=== PATIENT | female | born 1965 | race Caucasian/White ===

== ENCOUNTER 2018-02-25 07:29 | Emergency (ER) | payer OTHER ==
[2018-02-25 07:35] VITALS: BP 134/83; PULSE 55; RESP 18; TEMP 97.2
--- NOTE | 2018-02-25 08:06 | ED ---
General Adult HPI - General Chief complaint: Extremity Injury, Upper Stated complaint: rt shouler pain Time Seen by Provider: 02/25/18 07:46 Source: patient, RN notes reviewed Mode of arrival: ambulatory Limitations: no limitations - History of Present Illness Initial comments: Patient 52-year-old female presents emergency room today with chief complaint of right shoulder pain over the last 2 days. 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 She states that she noticed increased pain to the right shoulder. She states is worse with any movements of extension and abduction. Patient denies any specific injury or trauma to the area. She states she was using her [place] which is run out of for the pain. She states she is not taking any anti-inflammatories. She denies any other complaints or symptoms. Patient denies any recent fever, chills, shortness of breath, chest pain, back pain, abdominal pain, nausea or vomiting, numbness or tingling, dysuria or hematuria, constipation or diarrhea, headaches or visual changes, or any other complaints. - Related Data Home Medications Medication Instructions Recorded Confirmed Atenolol [Tenormin] 50 mg PO DAILY 09/27/15 10/10/16 Albuterol Inhaler [Ventolin Hfa 1 - 2 puff INHALATION Q6HR PRN 09/11/16 10/10/16 Inhaler] HYDROcodone/APAP 10-325MG [[place] 1 tab PO BID PRN 09/11/16 10/10/16 10-325] Meclizine [Antivert] 12.5 mg PO DIRECTED PRN 09/11/16 10/10/16 Previous Rx's Medication Instructions Recorded Cyclobenzaprine [Flexeril] 10 mg PO TID #20 tab 02/25/18 Dexamethasone 0.75 mg PO DIRECTED #12 tablet 02/25/18 Ibuprofen [Motrin] 600 mg PO Q6HR PRN #40 day 02/25/18 Allergies Allergy/AdvReac Type Severity Reaction Status Date / Time iron Allergy Unknown Unknown Verified 02/25/18 07:35 Childhood erythromycin base Allergy BREATHING Verified 02/25/18 07:35 DIFFICULTY. Penicillins Allergy Unknown Verified 02/25/18 07:35 Childhood pneumococcal vaccine Allergy Unknown Verified 02/25/18 07:35 [From Prevnar 13 (PF)] Review of Systems ROS Statement: Those systems with pertinent positive or pertinent negative responses have been documented in the HPI. ROS Other: All systems not noted in ROS Statement are negative. Past Medical History Past Medical History: COPD, Eye Disorder, GERD/Reflux, Hypertension, Myocardial Infarction ([place]) Additional Past Medical History / Comment(s): STATES [place] X2 ( @ 28 AND 32 YEARS OLD), vertigo, irregular heartbeat, 5 collapsed lungs- LEFT LUNG REMOVED, HERNIATED DISC WITH BACK PAIN, STATES SHE PICKS AT HER SKIN., BILAT CATARACTS Last Myocardial Infarction Date:: 1996 History of Any Multi-Drug Resistant Organisms: None Reported Additional Past Surgical History / Comment(s): PARTIAL left lung removed, colonoscopy Past Anesthesia/Blood Transfusion Reactions: Motion Sickness Past Psychological History: Depression Smoking Status: Heavy tobacco smoker Past Alcohol Use History: Daily Past Drug Use History: None Reported - Past Family History Mother Family Medical History: Cancer General Exam - General Exam Comments Initial Comments: General: The patient is awake and alert, in no distress, and does not appear acutely ill. Neck: The neck is supple, there is no tenderness or JVD. Cardiovascular: There is a regular rate and rhythm. No murmur, rub or gallop is appreciated. Respiratory: Lungs are clear to auscultation, respirations are non-labored, breath sounds are equal. No wheezes, stridor, rales, or rhonchi. Musculoskeletal: Normal appearance of the right shoulder. Sensations are intact. Pulses equal bilaterally 2+. Strength is 5/5. Pain reproduced with abduction and extension. No specific bony tenderness on exam. Tender in the musculature of trapezius. Neurological: A&O x 3. CN II-XII intact, There are no obvious motor or sensory deficits. Coordination appears grossly intact. Speech is normal. Skin: Skin is warm and dry and no rashes or lesions are noted. Psychiatric: Normal mood and affect. Limitations: no limitations Course Vital Signs 02/25/18 07:32 Temperature 97.2 F L Pulse Rate 55 L Respiratory 18 Rate Blood Pressure 134/83 O2 Sat by Pulse 100 Oximetry Medical Decision Making - Medical Decision Making Patient's pain reproducible with certain movements. 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 Has not used any anti-inflammatories. Will be started on anti-inflammatories, steroid Dosepak, muscle relaxant for her symptoms. Advised follow-up with family physician or return to the emergency room symptoms increase or worsen. Disposition Clinical Impression: Overuse injury Disposition: HOME SELF-CARE Condition: Good Instructions: Tendinitis (ED) Additional Instructions: Please use medication as discussed. Please follow-up with family doctor in the next 2 days of symptoms have not improved. Please return to emergency room if the symptoms increase or worsen or for any other concerns. Prescriptions: Cyclobenzaprine [Flexeril] 10 mg PO TID #20 tab Dexamethasone 0.75 mg PO DIRECTED #12 tablet Ibuprofen [Motrin] 600 mg PO Q6HR PRN #40 day PRN Reason: Pain Referrals: Gaurav Garcia MD [Primary Care Provider] - 1-2 days Time of Disposition: 08:04
== END 2018-02-25 08:15 | disposition home or self-care (01) ==
LOC: EC 07:29
DX: M70.811 Other soft tissue disorders related to use, overuse and pressure, right shoulder (principal); I10 Essential (primary) hypertension; I25.2 Old myocardial infarction; F17.200 Nicotine dependence, unspecified, uncomplicated; Z79.899 Other long term (current) drug therapy; Z91.048 Other nonmedicinal substance allergy status; Z88.1 Allergy status to other antibiotic agents; Z88.0 Allergy status to penicillin; Z88.7 Allergy status to serum and vaccine; X50.0XXA Overexertion from strenuous movement or load, initial encounter; Y92.69 Other specified industrial and construction area as the place of occurrence of the external cause; Y93.89 Activity, other specified; Y99.0 Civilian activity done for income or pay
CPT/HCPCS: 99283

== ENCOUNTER 2018-03-26 08:08 | Day surgery (SDC) | payer OTHER ==
[2018-03-19 12:37] VITALS: BMI 20.9
[~2018-03-26 08:08] MED LIST: LACTATED RINGERS 1,000 ML IV SCH; LIDOCAINE 1% 20 ML VIAL (10MG/ML) FOR IV START INTRADERMA PRN
[2018-03-26] MEDS: PHENYLEPHRINE 10% OPHTH DROPS 5 ML BTL OP ONE ×3 (09:00→09:18)
[2018-03-26 09:01] VITALS: TEMP 97.4
[2018-03-26] MEDS: CYCLOPENTOLATE 1% OPHTH SOLN 2 ML BTL OP ONE ×3 (09:03→09:21)
[2018-03-26] MEDS: FLURBIPROFEN 0.03% OPHTH DROPS 2.5 ML BTL OP ONE ×3 (09:06→09:24)
[2018-03-26] MEDS ORDERED: BALANCED SALT IRRIG SOLN COMB2 15 ML IRRIG.SOLN IRRIGATION ONE (09:49)
[2018-03-26] MEDS ORDERED: HYALURONATE SODIUM INTRAOCULAR 1 EACH SYRINGE (10MG/ML) INTRAOCULA ONE (09:49)
[2018-03-26] MEDS ORDERED: PROPOFOL 10 MG/ML 20 ML VIAL IV ONE (09:50)
[2018-03-26] MEDS ORDERED: LIDOCAINE 1% INJ 10MG/ML (20 ML MDV) ONE (09:50)
[2018-03-26] MEDS ORDERED: EPINEPHrine (PF) 0.5 ML in BALANCED SALT IRRIG SOLN COMB2 500 ML IRRIGATION ONE (09:54)
--- NOTE | 2018-03-26 10:14 | P.OP ---
Date of Procedure: 03/26/18 Procedure(s) Performed: PREOPERATIVE DIAGNOSIS: Cataract, left eye. POSTOPERATIVE DIAGNOSIS: Cataract, left eye. OPERATION: Phacoemulsification cataract, left eye. DESCRIPTION OF PROCEDURE: The patient was taken to the preoperative holding area. Intravenous Propofol was given so as to bring about adequate sedation. The following mixture was given for local anesthesia: 5 mL of 2% lidocaine, 5 mL of 0.75% Marcaine, and 1 mL of Wydase. Approximately 4 mL was injected in the retrobulbar space of the surgical eye. Additional 1 mL was then directed to the temporal area of the surgical eye. This was performed to allow adequate neurological block of the facial muscles. The patient was revived and then taken into the operative room. The patient was prepped and draped in the usual sterile manner for the operative eye. A lid speculum was put into position. The conjunctiva was resected back from the limbus in the 12 o'clock position. Bleeding was controlled with electrocautery. A #69 blade was then used and a half-thickness scleral incision approximately 1-mm posterior to the limbus was made on bare sclera. This was shelved in the clear cornea using a crescent knife. Next a 15-degree blade was used to make a stab incision at the 3 o' clock position at the corneolimbal interface. Keratome blade was then used and the superior wound was extended into the anterior chamber. Viscoelastic was injected into the anterior chamber and to maintain its form. Next, a cystotome was used and a continuous anterior capsulotomy was made without difficulty. Hydrodissection using a blunt cannula and BSS was performed. Phaco probe was then employed and a groove extending from 12 to 6 o'clock in the lens was created. A Preston wand was used through the stab incision so as to perform a divide and conquer technique. Next an irrigation aspiration probe was utilized and any residual cortex was removed from the eye. Again, viscoelastic was injected into the anterior chamber. An Brett posterior chamber lens implant was placed in the cartridge and injected into the anterior chamber without difficulty. The [employer] hook was utilized to spin the lens into position and this was again performed without any difficulty. The irrigation and aspiration probe was again employed and any residual viscoelastic was removed from the eye. Then BSS was injected into the limbal stab incision and the anterior chamber re-inflated. The conjunctiva was reapproximated using electrocautery. One drop of 0.25% Timoptic was placed over the corneal along with TobraDex ophthalmic ointment. Two sterile patches and a Self eye shield were taped into position. The patient was transported to the recovery room in stable condition. Pathology: none sent Condition: stable Disposition: same day
[2018-03-26 10:41] VITALS: BP 138/93; PULSE 44; RESP 18
[2018-03-26] MEDS ORDERED: TIMOLOL 0.5% OPHTH DROPS 5 ML BTL OP ONE (23:00)
[2018-03-26] MEDS ORDERED: BUPIVACAINE (PF) 0.75% 5 ML, HYALURONIDASE, HUMAN RECOMB 150 UNIT, LIDOCAINE 2% (PF) 10... MISCELLANE ONE ×3 (23:00)
[2018-03-26] MEDS ORDERED: GENTAMICIN/PREDNISOL AC OPHTH OINT 3.5GM OPHTHALMIC ONE (23:00)
== END 2018-03-26 10:50 | disposition home or self-care (01) ==
LOC: OR 08:08
PROVIDERS: ATTEND Ophthalmology
DX: H25.042 Posterior subcapsular polar age-related cataract, left eye (principal); Z88.1 Allergy status to other antibiotic agents; Z88.2 Allergy status to sulfonamides; F17.200 Nicotine dependence, unspecified, uncomplicated; I25.2 Old myocardial infarction; I25.10 Atherosclerotic heart disease of native coronary artery without angina pectoris; J44.9 Chronic obstructive pulmonary disease, unspecified; K21.9 Gastro-esophageal reflux disease without esophagitis; Z86.69 Personal history of other diseases of the nervous system and sense organs; Z79.891 Long term (current) use of opiate analgesic; Z79.899 Other long term (current) drug therapy
CPT/HCPCS: 66984; V2632; J3470; J2001 ×2; J0171; J2704

== ENCOUNTER 2019-10-28 09:45 | Emergency (ER) | payer OTHER ==
[2019-10-28 09:59] VITALS: RESP 18
[2019-10-28] MEDS ORDERED: KETOROLAC 60 MG/2 ML VIAL IM STA (10:18)
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
[2019-10-28 11:39] VITALS: BP 160/93; PULSE 63; TEMP 98.4
== END 2019-10-28 11:39 | disposition home or self-care (01) ==
LOC: EC 09:45
DX: M47.892 Other spondylosis, cervical region (principal); M47.896 Other spondylosis, lumbar region; J44.9 Chronic obstructive pulmonary disease, unspecified; K21.9 Gastro-esophageal reflux disease without esophagitis; I10 Essential (primary) hypertension; I25.2 Old myocardial infarction; F32.9 Major depressive disorder, single episode, unspecified; F17.200 Nicotine dependence, unspecified, uncomplicated; Z79.899 Other long term (current) drug therapy; Z88.8 Allergy status to other drugs, medicaments and biological substances; Z88.1 Allergy status to other antibiotic agents; Z88.0 Allergy status to penicillin; Z88.7 Allergy status to serum and vaccine; V49.40XA Driver injured in collision with unspecified motor vehicles in traffic accident, initial encounter; Y92.410 Unspecified street and highway as the place of occurrence of the external cause
CPT/HCPCS: 72050; 72100; 96372; 99284

== ENCOUNTER → 2020-02-13 | Outpatient (CLI) | payer OTHER ==
--- NOTE | 2020-02-13 11:36 | MR ---
EXAMINATION TYPE: MR cervical spine wo/w con DATE OF EXAM: 02/13/2020 COMPARISON: Plain film 10/28/2019 HISTORY: Radiculopathy TECHNIQUE: Multiplanar, multisequence images of the cervical spine were acquired utilizing 7 mL intravenous Gada vist gadolinium contrast. Diffusion weighted imaging was performed. C2-C3: Uncovertebral joint hypertrophy and facet arthropathy results in some mild left-sided foramina l encroachment. No evident disc herniation or central stenosis C3-C4: Left-sided foraminal encroachment present greater than right. No disc herniation or central st enosis. C4-C5: Right-sided foraminal encroachment is present due to uncovertebral joint hypertrophy and facet arthropathy, contributed by the listhesis. Broad-based posterior disc bulge causes mild effacement o f anterior thecal sac. No significant central canal stenosis. C5-C6: Posterior broad-based disc bulge causes mild anterior mass effect on the thecal sac. No signif icant foraminal encroachment or central stenosis. C6-C7: There is a posterior disc herniation in the left posterior paracentral location extending towa rds the left neural foramen, there is left-sided foraminal encroachment and possibly contact with the anterior cervical cord. Only mild central stenosis. C7-T1: No evidence for degenerative disc disease. No disc bulge/herniation or protrusion. No Canal stenosis. Foramina are patent bilaterally. Cervical segments are intact. There is normal alignment. Cervical spinal cord is of normal signal. Craniovertebral junction relationships are within normal limits. There is multilevel spondylosis. M inimal anterolisthesis grade 1 C4-5, C5-6. Loss of disc height and signal is present at C5-6 and C6-C 7, C4-5, there is endplate discogenic marrow signal change C5-6 and C6-7. No abnormal enhancement fol lowing contrast administration. IMPRESSION: Degenerative disc disease with disc herniation present at C6-7 possibly contacting the anterior cervi kirti cord.
== END | disposition home or self-care (01) ==
LOC: RADMRIMAIN 09:30
PROVIDERS: ATTEND Family Medicine
DX: M50.123 Cervical disc disorder at C6-C7 level with radiculopathy (principal)
CPT/HCPCS: 72156; A9585

== ENCOUNTER 2020-09-01 18:26 | Emergency (ER) | payer OTHER ==
[2020-09-01 18:33] VITALS: RESP 18; TEMP 98.2
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
--- NOTE | 2020-09-01 19:49 | XR ---
EXAMINATION TYPE: XR Hip LT and AP Pelvis DATE OF EXAM: 09/01/2020 COMPARISON: NONE HISTORY: Pain from fall TECHNIQUE: A single AP view of the pelvis is obtained. Two views of the left hip are obtained. FINDINGS: Umbilical piercing. There is no acute fracture/dislocation evident in the pelvis. The hip and sacroiliac joints appear symmetric and unremarkable. Pelvic phleboliths. The overlying soft tiss ue appears unremarkable. Two views of left hip show no acute fracture or dislocation. No focal lytic or sclerotic lesion seen in the proximal left femur. The overlying soft tissue is unremarkable. IMPRESSION: There is no acute fracture or dislocation in the pelvis or left hip.
--- NOTE | 2020-09-01 20:56 | CT ---
EXAMINATION TYPE: CT brain rjeiine wo con DATE OF EXAM: 09/01/2020 COMPARISON: CT brain 02/12/2011 HISTORY: fall. neck pain and headache. CT DLP: 1183.2 mGycm Automated exposure control for dose reduction was used. TECHNIQUE: CT scan of the head and cervical spine are performed without contrast. FINDINGS: There is no acute intracranial hemorrhage, mass effect, or midline shift identified. No extra-axial fluid collection. The ventricles and sulci are within normal limits in size. The globes are grossly symmetric. The mastoid air cells are clear. Mucosal thickening of the left maxillary sinu s. No depressed calvarial fracture. Cervical spine is visualized in its entirety from C1 through upper thoracic levels and demonstrates s atisfactory alignment without evidence of acute fracture or dislocation. Prevertebral soft tissue ap pears within normal limits. The C1-C2 articulation is unremarkable. Degenerative changes of the cer vical spine with varying degrees of neural foraminal bony encroachment. Biapical infiltrates change with pleural nodularity and thickening. IMPRESSION: 1. There is no acute fracture or dislocation evident in the cervical spine. 2. No acute intracranial hemorrhage, mass effect, or midline shift is seen.
[2020-09-01 21:39] VITALS: BP 129/90; PULSE 64
== END 2020-09-01 21:39 | disposition home or self-care (01) ==
LOC: EC 18:26
DX: M25.552 Pain in left hip (principal); K21.9 Gastro-esophageal reflux disease without esophagitis; I10 Essential (primary) hypertension; I25.2 Old myocardial infarction; J44.9 Chronic obstructive pulmonary disease, unspecified; F32.9 Major depressive disorder, single episode, unspecified; Z79.899 Other long term (current) drug therapy; Z91.048 Other nonmedicinal substance allergy status; Z88.1 Allergy status to other antibiotic agents; Z88.0 Allergy status to penicillin; Z88.7 Allergy status to serum and vaccine; Z79.51 Long term (current) use of inhaled steroids; W01.0XXA Fall on same level from slipping, tripping and stumbling without subsequent striking against object, initial encounter; Y92.009 Unspecified place in unspecified non-institutional (private) residence as the place of occurrence of the external cause
CPT/HCPCS: 70450; 72125; 73502; 99284

== ENCOUNTER 2020-09-07 11:38 | Emergency (ER) | payer OTHER ==
[2020-09-07 11:52] VITALS: BP 116/72; PULSE 55; RESP 18; TEMP 98.2
[2020-09-07] MEDS ORDERED: KETOROLAC 15 MG/ML 1 ML VIAL IM STA (12:10)
--- NOTE | 2020-09-07 12:47 | US ---
EXAMINATION TYPE: US venous doppler duplex LE LT DATE OF EXAM: 09/07/2020 12:38 PM COMPARISON: NONE CLINICAL HISTORY: pain. SIDE PERFORMED: Left TECHNIQUE: The lower extremity deep venous system is examined utilizing real time linear array sonog ashlyn with graded compression, doppler sonography and color-flow sonography. VESSELS IMAGED: External Iliac Vein (EIV) Common Femoral Vein Deep Femoral Vein Greater Saphenous Vein * Femoral Vein Popliteal Vein Small Saphenous Vein * Proximal Calf Veins (* superficial vessels) Left Leg: Negative for DVT IMPRESSION: No evidence for DVT at this time.
--- NOTE | 2020-09-07 13:11 | ED ---
General Adult HPI - General Chief complaint: Extremity Injury, Lower Stated complaint: Fall, L Leg Injury Time Seen by Provider: 09/07/20 11:54 Source: patient, RN notes reviewed Mode of arrival: wheelchair Limitations: no limitations - History of Present Illness Initial comments: 55-year-old female presents to the emergency room for a chief complaint of left leg pain. Patient reports she has had pain in the left leg since a fall a week ago. Patient reports that when she fell she stepped on paper with her right leg and her right leg slipped out from under her. This stretched the back of the left leg. Patient reports that it has been painful since that time. She reports that today she noticed bruising to the back of the leg. Her primary car e provider was concerned for a blood clot and wanted her to be evaluated. She denies any chest pain or shortness of breath. Denies any history of blood clots herself.Patient has no other complaints at this time including shortness of breath, chest pain, abdominal pain, nausea or vomiting, headache, or visual changes. - Related Data Home Medications Medication Instructions Recorded Confirmed Albuterol Inhaler (Mhu) [Ventolin 1 - 2 puff INHALATION Q6HR PRN 09/11/16 03/26/18 Hfa Inhaler] HYDROcodone/APAP 10-325MG [[place] 1 tab PO BID PRN 09/11/16 03/26/18 10-325] Meclizine [Antivert] 12.5 mg PO DIRECTED PRN 09/11/16 03/26/18 Citalopram Hydrobromide 40 mg PO DAILY 03/19/18 03/26/18 [Citalopram HBr] Cyclobenzaprine [Flexeril] 10 mg PO TID PRN 03/19/18 03/26/18 Metoprolol Succinate (ER) [Toprol 80 mg PO DAILY 03/19/18 03/26/18 Xl] Nicotine Patch 1 patch TRANSDERM DAILY 03/19/18 03/26/18 Ranitidine HCl [Zantac] 150 mg PO BID 03/19/18 03/26/18 Previous Rx's Medication Instructions Recorded Ibuprofen [Motrin] 600 mg PO Q6HR PRN #40 day 02/25/18 Cyclobenzaprine [Flexeril] 5 mg PO BID PRN #10 tablet 10/28/19 Allergies Allergy/AdvReac Type Severity Reaction Status Date / Time iron Allergy Unknown Unknown Verified 09/07/20 11:52 Childhood erythromycin base Allergy BREATHING Verified 09/07/20 11:52 DIFFICULTY. Penicillins Allergy Unknown Verified 09/07/20 11:52 Childhood pneumococcal vaccine Allergy Unknown Verified 09/07/20 11:52 [From Prevnar 13 (PF)] Review of Systems ROS Statement: Those systems with pertinent positive or pertinent negative responses have been documented in the HPI. ROS Other: All systems not noted in ROS Statement are negative. Past Medical History Past Medical History: COPD, Eye Disorder, GERD/Reflux, Hypertension, Myocardial Infarction ([place]) Additional Past Medical History / Comment(s): vertigo, irregular heartbeat, 5 collapsed lungs- LEFT LUNG REMOVED, HERNIATED DISC WITH BACK PAIN, STATES SHE PICKS AT HER SKIN., BILAT CATARACTS-removed Last Myocardial Infarction Date:: 1996 History of Any Multi-Drug Resistant Organisms: None Reported Additional Past Surgical History / Comment(s): PARTIAL left lung removed, colonoscopy Past Anesthesia/Blood Transfusion Reactions: Motion Sickness Past Psychological History: Depression Smoking Status: Current every day smoker Past Alcohol Use History: Daily Past Drug Use History: Marijuana - Past Family History Mother Family Medical History: Cancer, Deep Vein Thrombosis (DVT) General Exam Limitations: no limitations General appearance: alert, in no apparent distress Head exam: Present: atraumatic, normocephalic, normal inspection Eye exam: Present: normal appearance, PERRL, EOMI. Absent: scleral icterus, conjunctival injection, periorbital swelling ENT exam: Present: normal exam, mucous membranes moist Neck exam: Present: normal inspection, full ROM. Absent: tenderness, meni ngismus, lymphadenopathy Respiratory exam: Present: normal lung sounds bilaterally. Absent: respiratory distress, wheezes, rales, rhonchi, stridor Cardiovascular Exam: Present: regular rate, normal rhythm, normal heart sounds. Absent: systolic murmur, diastolic murmur, rubs, gallop, clicks GI/Abdominal exam: Present: soft, normal bowel sounds. Absent: distended, tenderness, guarding, rebound, rigid Extremities exam: Present: tenderness (Tenderness noted to the posterior upper leg.), normal capillary refill (Capillary refill less than 2 seconds, TB pulse 2+ in the left lower extremity.), other (Sensation intact in the left lower external he. Patient does have some ecchymosis noted to the distal posterior hamstring area.). Absent: full ROM (Patient is not able to fully extend the knee due to pain in the hamstring. She is able to flex the left knee.), calf tenderness Neurological exam: Present: alert Course Vital Signs 09/07/20 11:49 Temperature 98.2 F Pulse Rate 55 L Respiratory 18 Rate Blood Pressure 116/72 O2 Sat by Pulse 98 Oximetry Medical Decision Making - Medical Decision Making HPI and physical exam as documented. Neurovascular status intact in the left lower extremity. Patient does have some mild ecchymosis noted to the distal posterior thigh. Ultrasound shows no evidence of DVT at this time. Patient likely has ecchymosis from possible hamstring tear. Patient will be given starter pack of Tylenol 3. I did refer patient to orthopedics for further evaluation. Patient will return here for any worsening symptoms. Disposition Clinical Impression: Leg pain, left Disposition: HOME SELF-CARE Condition: Good Instructions (If sedation given, give patient instructions): Hamstring Injury (ED) Additional Instructions: Please follow up with primary care and orthopedics in 1-2 days. Please return to the emergency room for any worsening symptoms. Is patient prescribed a controlled substance at d/c from ED?: No Referrals: Gaurav Garcia MD [Primary Care Provider] - 1-2 days Paul Urrutia DO [Doctor of Osteopathic Medicine] - 1-2 days Time of Disposition: 13:16
[2020-09-07] MEDS ORDERED: ACET/COD 300 MG/30 MG STARTER PACK 6 TAB BTL PO STA (13:35)
== END 2020-09-07 13:39 | disposition home or self-care (01) ==
LOC: EC 11:38
DX: S70.12XA Contusion of left thigh, initial encounter (principal); F32.9 Major depressive disorder, single episode, unspecified; J44.9 Chronic obstructive pulmonary disease, unspecified; K21.9 Gastro-esophageal reflux disease without esophagitis; I10 Essential (primary) hypertension; F17.200 Nicotine dependence, unspecified, uncomplicated; I25.2 Old myocardial infarction; Z79.51 Long term (current) use of inhaled steroids; Z79.899 Other long term (current) drug therapy; Z91.048 Other nonmedicinal substance allergy status; Z88.1 Allergy status to other antibiotic agents; Z88.7 Allergy status to serum and vaccine; Z88.0 Allergy status to penicillin; W01.0XXA Fall on same level from slipping, tripping and stumbling without subsequent striking against object, initial encounter
CPT/HCPCS: 93971; 96372; 99284; J1885

== ENCOUNTER 2020-10-09 03:02 | Inpatient (IN) | payer OTHER ==
[2020-10-09] MEDS ORDERED: cefTRIAXone IN SWFI 1,000 MG/10 ML SYRINGE IVP STA (03:19)
[2020-10-09] MEDS ORDERED: ALBUTEROL NEBULIZED 2.5 MG/3 ML INHALATION STA (03:21)
[2020-10-09] MEDS ORDERED: DEXAMETHASONE SOD PHOSPHATE 10 MG/ML 1 ML VIAL IV STA (03:21)
[2020-10-09] MEDS ORDERED: IPRATROPIUM-ALBUTEROL 3 ML NEB INHALATION STA (03:21)
--- NOTE | 2020-10-09 03:27 | XR ---
EXAM: XR Chest, 1 View CLINICAL HISTORY: ITS.REASON XR Reason: Pain TECHNIQUE: Frontal view of the chest. COMPARISON: No relevant prior studies available. FINDINGS: Lungs: Right basilar opacity Pleural space: No acute findings Heart: No cardiomegaly. Bones/joints: No acute findings. IMPRESSION: Right basilar opacity. <MYCVCSECTION> Communications: 10/09/20 03:[address] Banuelos on 10/09 03:46 (-05:00)
[2020-10-09 03:33] LABS: Basophils # (A) 0.1 k/uL (0-0.2); Basophils % (A) 0 %; Eosinophils # (A) 0.3 k/uL (0-0.7); Eosinophils % (A) 2 %; HCT 40.1 % (34.0-46.0); HGB 13.3 gm/dL (11.4-16.0); Lymphocytes # (A) 2.3 k/uL (1.0-4.8); Lymphocytes % (A) 16 %; MCH 34.4 pg (25.0-35.0); MCHC 33.2 g/dL (31.0-37.0); MCV 103.5 fL (80.0-100.0); Macrocytosis Slight; Mean Platelet Volume 7.7; Monocytes # (A) 0.3 k/uL (0-1.0); Monocytes % (A) 2 %; Neutrophils # (A) 11.6 k/uL (1.3-7.7); Neutrophils % (A) 79 %; Platelet Count 258 k/uL (150-450); RBC 3.87 m/uL (3.80-5.40); RDW 12.7 % (11.5-15.5); WBC 14.7 k/uL (3.8-10.6)
[2020-10-09] MEDS ORDERED: LEVOFLOXACIN 500MG-D5W PMX 500 MG in DEXTROSE/WATER 1 100ML.BAG IVPB STA (03:35)
--- NOTE | 2020-10-09 03:39 | ED ---
General Adult HPI - General Chief complaint: Shortness of Breath Stated complaint: SOB Time Seen by Provider: 10/09/20 03:04 Source: patient, EMS, RN notes reviewed, old records reviewed Mode of arrival: EMS Limitations: no limitations, physical limitation - History of Present Illness Initial comments: 55-year-old female history of COPD, spontaneous pneumothorax presenting for evaluation of dyspnea, right-sided lateral chest pain. Patient states she has been treated for bronchitis over the past several days. She's had cough and sputum production as well as some intermittent chest pain. She denies central chest pain. She states she was sleeping and had a coughing spell resulting in some right-sided chest pain which was worse than it has been over the past several days. EMS was called and the patient was transported to the emergency department. She denies fever. Denies lower extremity pain or swelling. - Related Data Home Medications Medication Instructions Recorded Confirmed Albuterol Inhaler (Mhu) [Ventolin 1 - 2 puff INHALATION Q6HR PRN 09/11/16 03/26/18 Hfa Inhaler] HYDROcodone/APAP 10-325MG [[place] 1 tab PO BID PRN 09/11/16 03/26/18 10-325] Meclizine [Antivert] 12.5 mg PO DIRECTED PRN 09/11/16 03/26/18 Citalopram Hydrobromide 40 mg PO DAILY 03/19/18 03/26/18 [Citalopram HBr] Cyclobenzaprine [Flexeril] 10 mg PO TID PRN 03/19/18 03/26/18 Metoprolol Succinate (ER) [Toprol 80 mg PO DAILY 03/19/18 03/26/18 Xl] Nicotine Patch 1 patch TRANSDERM DAILY 03/19/18 03/26/18 Ranitidine HCl [Zantac] 150 mg PO BID 03/19/18 03/26/18 Previous Rx's Medication Instructions Recorded Ibuprofen [Motrin] 600 mg PO Q6HR PRN #40 day 02/25/18 Cyclobenzaprine [Flexeril] 5 mg PO BID PRN #10 tablet 10/28/19 Allergies Allergy/AdvReac Type Severity Reaction Status Date / Time iron Allergy Unknown Unknown Verified 10/09/20 03:11 Childhood erythromycin base Allergy BREATHING Verified 10/09/20 03:11 DIFFICULTY. Penicillins Allergy Unknown Verified 10/09/20 03:11 Childhood pneumococcal vaccine Allergy Unknown Verified 10/09/20 03:11 [From Prevnar 13 (PF)] Review of Systems ROS Statement: Those systems with pertinent positive or pertinent negative responses have been documented in the HPI. ROS Other: All systems not noted in ROS Statement are negative. Past Medical History Past Medical History: COPD, Eye Disorder, GERD/Reflux, Hypertension, Myocardial Infarction ([place]) Additional Past Medical History / Comment(s): vertigo, irregular heartbeat, 5 collapsed lungs- LEFT LUNG REMOVED, HERNIATED DISC WITH BACK PAIN, STATES SHE PICKS AT HER SKIN., BILAT CATARACTS-removed Last Myocardial Infarction Date:: 1996 History of Any Multi-Drug Resistant Organisms: None Reported Additional Past Surgical History / Comment(s): PARTIAL left lung removed, colonoscopy Past Anesthesia/Blood Transfusion Reactions: Motion Sickness Past Psychological History: Depression Smoking Status: Current every day smoker Past Alcohol Use History: Daily Past Drug Use History: Marijuana - Past Family History Mother Family Medical History: Cancer, Deep Vein Thrombosis (DVT) General Exam Limitations: no limitations, physical limitation General appearance: alert, in no apparent distress Head exam: Present: atraumatic, normocephalic Eye exam: Present: normal appearance, PERRL ENT exam: Present: normal exam Neck exam: Present: normal inspection. Absent: tenderness, meningismus Respiratory exam: Present: respiratory distress, wheezes, rhonchi (Right lower), decreased breath sounds Cardiovascular Exam: Present: regular rate, normal rhythm GI/Abdominal exam: Present: soft. Absent: distended, tenderness, guarding Extremities exam: Present: normal inspection, normal capillary refill. Absent: pedal edema Neurological exam: Present: alert, oriented X3, CN II-XII intact. Absent: motor sensory deficit Psychiatric exam: Present: anxious Skin exam: Present: warm, dry, intact. Absent: cyanosis, diaphoretic Course Vital Signs 10/09/20 10/09/20 03:04 04:43 Temperature 99 F Pulse Rate 77 88 Respiratory 24 20 Rate Blood Pressure 164/100 130/93 O2 Sat by Pulse 99 92 L Oximetry EKG Findings - EKG Comments: EKG Findings:: EKG: Normal sinus rhythm, rate of 68, KS interval 132, QRS duration 72, QTC [address] segment elevation, artifact in V2. Medical Decision Making - Medical Decision Making 55-year-old female presenting for evaluation of cough dyspnea right lateral c hest pain. History of COPD and spontaneous pneumothorax. Chest x-ray showing right lower lobe pneumonia, no displaced rib fracture, no pneumothorax. Patient had been hypoxic when EMS arrived in the low 80s. She was placed on supplemental oxygen with improvement in his work of breathing, wheezing throughout. She has CBC showed a leukocytosis with a white blood cell count 14.7, stable hemoglobin, normal electrolytes, normal kidney function. She has a negative influenza and negative for coronavirus tests. She is placed on antibiotics for right lower lobe pneumonia. She will be admitted for COPD exacerbation as well as pneumonia. Patient admitted to internal medicine with pulmonology on consult. Patient does have an elevated troponin. Her EKG is sinus rhythm without ST segment elevation or definitive signs of ischemia. She has no typical chest pain. I suspect this may be related to hypoxia and demand. Patient has been given aspirin, she started on heparin, serial troponins will be ordered. Cardiology placed on consult. Case discussed with both the admitting physician and cardiology. - Lab Data Result diagrams: 10/09/20 03:17 10/09/20 03:17 Lab Results 10/09/20 10/09/20 10/09/20 Range/Units 03:17 03:17 03:17 WBC 14.7 H (3.8-10.6) k/uL RBC 3.87 (3.80-5.40) m/uL Hgb 13.3 (11.4-16.0) gm/dL Hct 40.1 (34.0-46.0) % MCV 103.5 H (80.0-100.0) fL MCH 34.4 (25.0-35.0) pg MCHC 33.2 (31.0-37.0) g/dL RDW 12.7 (11.5-15.5) % Plt Count 258 (150-450) k/uL MPV 7.7 Neutrophils % 79 % Lymphocytes % 16 % Monocytes % 2 % Eosinophils % 2 % Basophils % 0 % Neutrophils # 11.6 H (1.3-7.7) k/uL Lymphocytes # 2.3 (1.0-4.8) k/uL Monocytes # 0.3 (0-1.0) k/uL Eosinophils # 0.3 (0-0.7) k/uL Basophils # 0.1 (0-0.2) k/uL Macrocytosis Slight PT 9.5 (9.0-12.0) sec INR 0.9 (<1.2) APTT 24.4 (22.0-30.0) sec Sodium 137 (137-145) mmol/L Potassium 3.6 (3.5-5.1) mmol/L Chloride 103 (98-107) mmol/L Carbon Dioxide 28 (22-30) mmol/L Anion Gap 6 mmol/L BUN 13 (7-17) mg/dL Creatinine 0.83 (0.52-1.04) mg/dL Est GFR (CKD-EPI)AfAm >90 (>60 ml/min/1.73 sqM) Est GFR (CKD-EPI)NonAf 81 (>60 ml/min/1.73 sqM) Glucose 94 (74-99) mg/dL Plasma Lactic Acid Jason (0.7-2.0) mmol/L Calcium 9.4 (8.4-10.2) mg/dL Magnesium 1.8 (1.6-2.3) mg/dL Total Bilirubin 0.8 (0.2-1.3) mg/dL AST 21 (14-36) U/L ALT 10 (4-34) U/L Alkaline Phosphatase 65 (38-126) U/L Troponin I (0.000-0.034) ng/mL Total Protein 6.9 (6.3-8.2) g/dL Albumin 4.0 (3.5-5.0) g/dL Coronavirus (PCR) (Not Detectd) Influenza Type A RNA (Not Detectd) Influenza Type B (PCR) (Not Detectd) 10/09/20 10/09/20 10/09/20 Range/Units 03:17 03:17 03:17 WBC (3.8-10.6) k/uL RBC (3.80-5.40) m/uL Hgb (11.4-16.0) gm/dL Hct (34.0-46.0) % MCV (80.0-100.0) fL MCH (25.0-35.0) pg MCHC (31.0-37.0) g/dL RDW (11.5-15.5) % Plt Count (150-450) k/uL MPV Neutrophils % % Lymphocytes % % Monocytes % % Eosinophils % % Basophils % % Neutrophils # (1.3-7.7) k/uL Lymphocytes # (1.0-4.8) k/uL Monocytes # (0-1.0) k/uL Eosinophils # (0-0.7) k/uL Basophils # (0-0.2) k/uL Macrocytosis PT (9.0-12.0) sec INR (<1.2) APTT (22.0-30.0) sec Sodium (137-145) mmol/L Potassium (3.5-5.1) mmol/L Chloride (98-107) mmol/L Carbon Dioxide (22-30) mmol/L Anion Gap mmol/L BUN (7-17) mg/dL Creatinine (0.52-1.04) mg/dL Est GFR (CKD-EPI)AfAm (>60 ml/min/1.73 sqM) Est GFR (CKD-EPI)NonAf (>60 ml/min/1.73 sqM) Glucose (74-99) mg/dL Plasma Lactic Acid Jason 1.3 (0.7-2.0) mmol/L Calcium (8.4-10.2) mg/dL Magnesium (1.6-2.3) mg/dL Total Bilirubin (0.2-1.3) mg/dL AST (14-36) U/L ALT (4-34) U/L Alkaline Phosphatase (38-126) U/L Troponin I 0.436 H* (0.000-0.034) ng/mL Total Protein (6.3-8.2) g/dL Albumin (3.5-5.0) g/dL Coronavirus (PCR) (Not Detectd) Influenza Type A RNA Not Detected (Not Detectd) Influenza Type B (PCR) Not Detected (Not Detectd) 10/09/20 Range/Units 03:21 WBC (3.8-10.6) k/uL RBC (3.80-5.40) m/uL Hgb (11.4-16.0) gm/dL Hct (34.0-46.0) % MCV (80.0-100.0) fL MCH (25.0-35.0) pg MCHC (31.0-37.0) g/dL RDW (11.5-15.5) % Plt Count (150-450) k/uL MPV Neutrophils % % Lymphocytes % % Monocytes % % Eosinophils % % Basophils % % Neutrophils # (1.3-7.7) k/uL Lymphocytes # (1.0-4.8) k/uL Monocytes # (0-1.0) k/uL Eosinophils # (0-0.7) k/uL Basophils # (0-0.2) k/uL Macrocytosis PT (9.0-12.0) sec INR (<1.2) APTT (22.0-30.0) sec Sodium (137-145) mmol/L Potassium (3.5-5.1) mmol/L Chloride (98-107) mmol/L Carbon Dioxide (22-30) mmol/L Anion Gap mmol/L BUN (7-17) mg/dL Creatinine (0.52-1.04) mg/dL Est GFR (CKD-EPI)AfAm (>60 ml/min/1.73 sqM) Est GFR (CKD-EPI)NonAf (>60 ml/min/1.73 sqM) Glucose (74-99) mg/dL Plasma Lactic Acid Jason (0.7-2.0) mmol/L Calcium (8.4-10.2) mg/dL Magnesium (1.6-2.3) mg/dL Total Bilirubin (0.2-1.3) mg/dL AST (14-36) U/L ALT (4-34) U/L Alkaline Phosphatase (38-126) U/L Troponin I (0.000-0.034) ng/mL Total Protein (6.3-8.2) g/dL Albumin (3.5-5.0) g/dL Coronavirus (PCR) Not Detected (Not Detectd) Influenza Type A RNA (Not Detectd) Influenza Type B (PCR) (Not Detectd) Critical Care Time Critical Care Time: Yes Total Critical Care Time: 35 Disposition Clinical Impression: Acute exacerbation of chronic obstructive pulmonary disease, Community acquired pneumonia, NSTEMI (non-ST elevated myocardial infarction) Disposition: ADMITTED IP TO THIS [facility] Condition: Stable Is patient prescribed a controlled substance at d/c from ED?: No Decision to Admit Reason: Admit from EC Decision Date: 10/09/20 Decision Time: 04:34
[2020-10-09] MEDS ORDERED: KETOROLAC 15 MG/ML 1 ML VIAL IVP STA (03:45)
[2020-10-09] MEDS ORDERED: SODIUM CHLORIDE 0.9% 500 ML 500 ML IV ONE (03:46)
[2020-10-09 03:47] LABS: INR 0.9 (<1.2); Partial Thromboplastin Time 24.4 sec (22.0-30.0); Prothrombin Time 9.5 sec (9.0-12.0)
[2020-10-09 04:00] LABS: ALT 10 U/L (4-34); AST 21 U/L (14-36); African American GFR (CKD) >90 (>60 ml/min/1.73 sqM); Alkaline Phosphatase 65 U/L (38-126); Anion Gap 6 mmol/L; Blood Urea Nitrogen 13 mg/dL (7-17); Calcium 9.4 mg/dL (8.4-10.2); Carbon Dioxide 28 mmol/L (22-30); Chloride 103 mmol/L (98-107); Glucose 94 mg/dL (74-99); Magnesium 1.8 mg/dL (1.6-2.3); Non-African American GFR(CKD) 81 (>60 ml/min/1.73 sqM); Potassium 3.6 mmol/L (3.5-5.1); Sodium 137 mmol/L (137-145); Total Bilirubin 0.8 mg/dL (0.2-1.3); Total Protein 6.9 g/dL (6.3-8.2)
[2020-10-09] MEDS ORDERED: IPRATROPIUM-ALBUTEROL 3 ML NEB INHALATION PRN (04:29)
[2020-10-09] MEDS ORDERED: ACETAMINOPHEN TAB 325 MG TAB PO PRN (04:31)
[2020-10-09] MEDS ORDERED: HEPARIN SODIUM,PORCINE 5,000 UNIT/ML 1 ML VIAL IV ONE (04:59)
[2020-10-09] MEDS ORDERED: HEPARIN SODIUM,PORCINE 5,000 UNIT/ML 1 ML VIAL IV PRN (04:59)
[2020-10-09] MEDS ORDERED: ASPIRIN 325 MG TAB PO STA (04:59)
[2020-10-09] MEDS: HEPARIN SOD,PORK IN 0.45% NACL 25,000 UNIT in 0.45% NACL 1 250ML.BAG IV SCH (05:18)
[2020-10-09] MEDS: methylPREDNISolone SOD SUCCI 125 MG/2 ML VIAL IV SCH ×3 (06:16→17:03)
[2020-10-09] MEDS: IPRATROPIUM-ALBUTEROL 3 ML NEB INHALATION SCH ×5 (08:33→21:14)
--- NOTE | 2020-10-09 10:01 | P.CNPUL ---
History of Present Illness Consult date: 10/09/20 Requesting physician: [place] Reason for consult: dyspnea, abnormal CXR/CT Chief complaint: Cough, congestion, chest wall pain History of present illness: This is a very pleasant 55-year-old female patient who follows with Dr. Garcia as her primary care provider. She has a history of chronic and ongoing tobacco dependence, chronic obstructive pulmonary disease, spontaneous pneumothorax bilaterally with previous chest tube placements and suspected lobectomy on the left side years ago, hypertension, myocardial infarction, irregular heartbeat, depression. She presented here to the emergency room early this morning with complaints of increasing shortness of breath, cough congestion intermittent chest pain. She had been treated for bronchitis for the past several days with not much improvement. Chest x-ray reveals right basilar opacity. EKG reveals sinus rhythm without any significant ST or T wave abnormalities. Troponin 0.436 and she was initiated on heparin drip. Coronavirus test negative. White count 14.7. Hemoglobin 13.3. Sodium 137. Potassium 3.6. Creatinine 0.83. She has been initiated on DuoNeb inhalations, IV Solu-Medrol, heparin drip. She is seen today in consultation in the emergency room. Presently she is awake and alert in no acute distress. She is dyspneic with conversation. She is requiring 6 L nasal cannula to maintain O2 saturations in the low 90s. Review of Systems REVIEW OF SYSTEMS: CONSTITUTIONAL: Denies any recent significant weight loss or weight gain. EYES: Denies change in vision. EARS, NOSE, MOUTH, THROAT: Denies headaches, denies sore throat. CARDIOVASCULAR: Positive for chest pain, no palpitations or syncopal episodes. RESPIRATORY: Positive for shortness of breath, cough, congestion no hemoptysis. GASTROINTESTINAL: Denies change in appetite, denies abdominal pain GENITOURINARY: Denies hematuria, denies infections. MUSKULOSKELETAL: Denies pain, denies swelling. INTEGUMENTARY: Denies rash, denies eczema. NEUROLOGICAL: Denies recent memory loss, no recent seizure activity. PSYCHIATRIC: Denies anxiety, denies depression. HEMATOLOGIC/LYMPHATIC: Denies anemia, denies enlarged lymph nodes. Past Medical History Past Medical History: COPD, Eye Disorder, GERD/Reflux, Hypertension, Myocardial Infarction ([place]) Additional Past Medical History / Comment(s): vertigo, irregular heartbeat, 5 collapsed lungs- LEFT LUNG REMOVED, HERNIATED DISC WITH BACK PAIN, STATES SHE PICKS AT HER SKIN., BILAT CATARACTS-removed Last Myocardial Infarction Date:: 1996 History of Any Multi-Drug Resistant Organisms: None Reported Additional Past Surgical History / Comment(s): PARTIAL left lung removed, colonoscopy Past Anesthesia/Blood Transfusion Reactions: Motion Sickness Past Psychological History: Depression Smoking Status: Current every day smoker Past Alcohol Use History: Daily Past Drug Use History: Marijuana - Past Family History Mother Family Medical History: Cancer, Deep Vein Thrombosis (DVT) Medications and Allergies Home Medications Medication Instructions Recorded Confirmed Type HYDROcodone/APAP 10-325MG [[place] 1 tab PO BID PRN 09/11/16 10/09/20 History 10-325] Meclizine [Antivert] 12.5 mg PO TID PRN 09/11/16 10/09/20 History Citalopram Hydrobromide 40 mg PO DAILY 03/19/18 10/09/20 History [Citalopram HBr] Albuterol Nebulized [Ventolin 2.5 mg INHALATION RT-TID PRN 10/09/20 10/09/20 History Nebulized] Atenolol [Tenormin] 50 mg PO DAILY 10/09/20 10/09/20 History Atorvastatin Calcium [Lipitor] 20 mg PO DAILY 10/09/20 10/09/20 History Cholecalciferol [Vitamin D3 (25 2,000 unit PO DAILY 10/09/20 10/09/20 History Mcg = 1000 Iu)] Cyanocobalamin (Vitamin B-12) 1,000 mcg PO DAILY 10/09/20 10/09/20 History [Vitamin B-12] Famotidine 40 mg PO DAILY 10/09/20 10/09/20 History guaiFENesin [Mucinex] 1,200 mg PO BID PRN 10/09/20 10/09/20 History Allergies Allergy/AdvReac Type Severity Reaction Status Date / Time iron Allergy Unknown Unknown Verified 10/09/20 09:09 Childhood erythromycin base Allergy BREATHING Verified 10/09/20 09:09 DIFFICULTY. Penicillins Allergy Unknown Verified 10/09/20 09:09 Childhood pneumococcal vaccine Allergy Unknown Verified 10/09/20 09:09 [From Larry 13 (PF)] Physical Exam Vitals: Vital Signs Temp Pulse Resp BP Pulse Ox 10/09/20 08:47 67 10/09/20 08:33 75 94 L 10/09/20 04:43 88 20 130/93 92 L 10/09/20 03:04 99 F 77 24 164/100 99 Intake and Output 10/08/20 10/09/20 10/09/20 22:59 06:59 14:59 Other: Weight 63.503 kg GENERAL EXAM: Alert, pleasant 55-year-old female patient, on 6 L nasal cannula, fairly comfortable in no apparent distress. HEAD: Normocephalic. EYES: Normal reaction of pupils, equal size. NOSE: Clear with pink turbinates. THROAT: No erythema or exudates. NECK: No masses, no JVD. CHEST: No chest wall deformity. LUNGS: Equal air entry with bilateral scattered rhonchi, end expiratory wheeze, diminished. CVS: S1 and S2 normal with no audible murmur, regular rhythm. ABDOMEN: No hepatosplenomegaly, normal bowel sounds, no guarding or rigidity. SPINE: No scoliosis or deformity SKIN: No rashes CENTRAL NERVOUS SYSTEM: No focal deficits, tone is normal in all 4 extremities. EXTREMITIES: There is no peripheral edema. No clubbing, no cyanosis. Peripheral pulses are intact. Results - Laboratory Findings CBC and BMP: 10/09/20 03:17 10/09/20 03:17 PT/INR, D-dimer PT 9.5 sec (9.0-12.0) 10/09/20 03:17 INR 0.9 (<1.2) 10/09/20 03:17 Abnormal lab findings: Abnormal Labs 10/09/20 10/09/20 03:17 03:17 WBC 14.7 H MCV 103.5 H Neutrophils # 11.6 H Troponin I 0.436 H* - Diagnostic Findings Chest x-ray: image reviewed Assessment and Plan Assessment: 1 Acute hypoxic respiratory failure secondary to an acute right lower lobe pneumonia, community-acquired, with acute exacerbation of chronic obstructive pulmonary disease. CoVID 19 screen negative. Influenza screen negative. 2 Acute exacerbation of chronic obstructive pulmonary disease 3 Chest wall pain with mildly elevated troponin, initiated on a heparin drip 4 Chronic and ongoing tobacco dependence 5 Previous history of multiple bilateral spontaneous pneumothoraces with chest tube placement, left-sided suspected blebectomy 6 Marijuana use 7 History of depression Plan: The patient was seen and evaluated by Dr. Basha Chest x-ray and labs reviewed She did receive ceftriaxone and Levaquin today Continue DuoNeb inhalations Add Pulmicort and Perforomist inhalations Continue IV Solu-Medrol Titrate down the FiO2 as tolerated Continue Heparin drip, cardiology consult pending We will continue to follow and make further recommendations based on her clinical status I, the cosigning physician, performed a history & physical examination of the patient. Lungs sounds with bilateral scattered rhonchi, end expiratory wheeze, diminished. Maintaining good O2 saturations in the 90s on 6 L high flow nasal cannula. I discussed the assessment and plan of care with my nurse practitioner, Gi Travis. I attest to the above note as dictated by her. Time with Patient: Greater than 30
[2020-10-09] MEDS ORDERED: guaiFENesin 600 MG TABLET.ER PO PRN (10:25)
--- NOTE | 2020-10-09 11:09 | P.CRDCN ---
History of Present Illness Consult date: 10/09/20 Chief complaint: Chest pain History of present illness: This is a very pleasant 55-year-old female patient with a past medical history significant for smoking and chronic obstructive pulmonary disease as well as history of hypertension and dyslipidemia presented to the emergency room complaining of chest discomfort. The patient was in her usual state of health until last night when she started experiencing increasing in the shortness of breath associated with cough without any sputum production. No fever or chills. She noticed that she started experiencing discomfort mainly over the right side of the chest but no central chest pain or chest discomfort. No radiation of the chest pain to the arms or neck or shoulders. She decided to come to the emergency department for further evaluation. She was seen already by the pulmonary/critical care team and she was diagnosed with pneumonia. She also was diagnosed with COPD exacerbation. The patient did have prior history of spontaneous pneumothorax. We consulted to see the patient because of abnormal cardiac enzymes was mildly abnormal troponin. The EKG showed sinus rhythm witho ut any ischemic ST or T-wave abnormalities concerning for severe underlying coronary artery disease. She was started subsequently on heparin IV. Beside that she is on aspirin as well as she is on beta jayson and statin. These medication were continued. No prior history of coronary artery disease or congestive heart failure or any cardiac arrhythmia and no prior history of heart catheterization. The blood work overall beside the troponin abnormalities is unremarkable. The hemoglobin is within normal limits as well as a sodium and potassium. The kidney function also within normal limits along with electrolytes. Past Medical History Past Medical History: COPD, Eye Disorder, GERD/Reflux, Hypertension, Myocardial Infarction ([place]) Additional Past Medical History / Comment(s): vertigo, irregular heartbeat, 5 collapsed lungs- LEFT LUNG REMOVED, HERNIATED DISC WITH BACK PAIN, STATES SHE PICKS AT HER SKIN., BILAT CATARACTS-removed Last Myocardial Infarction Date:: 1996 History of Any Multi-Drug Resistant Organisms: None Reported Additional Past Surgical History / Comment(s): PARTIAL left lung removed, colonoscopy Past Anesthesia/Blood Transfusion Reactions: Motion Sickness Past Psychological History: Depression Smoking Status: Current every day smoker Past Alcohol Use History: Daily Past Drug Use History: Marijuana - Past Family History Mother Family Medical History: Cancer, Deep Vein Thrombosis (DVT) Medications and Allergies Home Medications Medication Instructions Recorded Confirmed Type HYDROcodone/APAP 10-325MG [[place] 1 tab PO BID PRN 09/11/16 10/09/20 History 10-325] Meclizine [Antivert] 12.5 mg PO TID PRN 09/11/16 10/09/20 History Citalopram Hydrobromide 40 mg PO DAILY 03/19/18 10/09/20 History [Citalopram HBr] Albuterol Nebulized [Ventolin 2.5 mg INHALATION RT-TID PRN 10/09/20 10/09/20 History Nebulized] Atenolol [Tenormin] 50 mg PO DAILY 10/09/20 10/09/20 History Atorvastatin Calcium [Lipitor] 20 mg PO DAILY 10/09/20 10/09/20 History Cholecalciferol [Vitamin D3 (25 2,000 unit PO DAILY 10/09/20 10/09/20 History Mcg = 1000 Iu)] Cyanocobalamin (Vitamin B-12) 1,000 mcg PO DAILY 10/09/20 10/09/20 History [Vitamin B-12] Famotidine 40 mg PO DAILY 10/09/20 10/09/20 History guaiFENesin [Mucinex] 1,200 mg PO BID PRN 10/09/20 10/09/20 History Allergies Allergy/AdvReac Type Severity Reaction Status Date / Time iron Allergy Unknown Unknown Verified 10/09/20 09:09 Childhood erythromycin base Allergy BREATHING Verified 10/09/20 09:09 DIFFICULTY. Penicillins Allergy Unknown Verified 10/09/20 09:09 Childhood pneumococcal vaccine Allergy Unknown Verified 10/09/20 09:09 [From Prevnar 13 (PF)] Physical Exam Vitals: Vital Signs Temp Pulse Resp BP Pulse Ox 10/09/20 08:47 67 10/09/20 08:33 75 94 L 10/09/20 04:43 88 20 130/93 92 L 10/09/20 03:04 99 F 77 24 164/100 99 Intake and Output 10/08/20 10/09/20 10/09/20 22:59 06:59 14:59 Other: Weight 63.503 kg - Constitutional General appearance: no acute distress - Respiratory Respiratory: bilateral: wheezing - Cardiovascular Rhythm: regular Heart sounds: normal: S1, S2 Results 10/09/20 03:17 10/09/20 03:17 Cardiac Enzymes 10/09/20 10/09/20 Range/Units 03:17 03:17 AST 21 (14-36) U/L Troponin I 0.436 H* (0.000-0.034) ng/mL Coagulation 10/09/20 10/09/20 Range/Units 03:17 10:09 PT 9.5 (9.0-12.0) sec APTT 24.4 51.7 H (22.0-30.0) sec CBC 10/09/20 Range/Units 03:17 WBC 14.7 H (3.8-10.6) k/uL RBC 3.87 (3.80-5.40) m/uL Hgb 13.3 (11.4-16.0) gm/dL Hct 40.1 (34.0-46.0) % Plt Count 258 (150-450) k/uL Comprehensive Metabolic Panel 10/09/20 Range/Units 03:17 Sodium 137 (137-145) mmol/L Potassium 3.6 (3.5-5.1) mmol/L Chloride 103 (98-107) mmol/L Carbon Dioxide 28 (22-30) mmol/L BUN 13 (7-17) mg/dL Creatinine 0.83 (0.52-1.04) mg/dL Glucose 94 (74-99) mg/dL Calcium 9.4 (8.4-10.2) mg/dL AST 21 (14-36) U/L ALT 10 (4-34) U/L Alkaline Phosphatase 65 (38-126) U/L Total Protein 6.9 (6.3-8.2) g/dL Albumin 4.0 (3.5-5.0) g/dL Current Medications Generic Name Dose Route Start Last Admin Trade Name Freq PRN Reason Stop Dose Admin Acetaminophen 650 mg 10/09/20 04:31 Acetaminophen Tab 325 Mg Tab PO Q6HR PRN Fever and/ or Pain Hydrocodone Bitart/Acetaminophen 1 each 10/09/20 10:25 Hydrocodone/Apap 10-325mg 1 Each Tab PO BID PRN Pain Albuterol/Ipratropium 3 ml 10/09/20 04:29 Ipratropium-Albuterol 3 Ml Neb INHALATION RT-Q4H PRN Shortness Of Breath Or Wheezing Albuterol/Ipratropium 3 ml 10/09/20 08:00 11/14/20 08:33 Ipratropium-Albuterol 3 Ml Neb INHALATION 3 ml RT-QID GELACIO Administration Atenolol 50 mg 10/09/20 10:30 Atenolol 50 Mg Tab PO DAILY [facility] Atorvastatin Calcium 20 mg 10/09/20 10:30 Atorvastatin 20 Mg Tab PO DAILY [facility] Budesonide 1 mg 10/09/20 20:00 Budesonide 1 Mg/2 Ml Nebu INHALATION RT-BID [facility] Citalopram Hydrobromide 40 mg 10/09/20 10:30 Citalopram Hydrobromide 20 Mg Tab PO DAILY [facility] Cyanocobalamin 1,000 mcg 10/09/20 10:30 Cyanocobalamin 500 Mcg Tab PO DAILY [facility] Famotidine 40 mg 10/09/20 10:30 Famotidine 20 Mg Tab PO DAILY [facility] Formoterol Fumarate 20 mcg 10/09/20 20:00 Formoterol Fumarate 20 Mcg/2 Ml Nebu INHALATION RT-BID [facility] Guaifenesin 1,200 mg 10/09/20 10:25 Guaifenesin 600 Mg Tablet.Er PO BID PRN Cough Heparin Sodium (Porcine) 0 unit 10/09/20 04:59 Heparin Sodium,Porcine 5,000 Unit/Ml 1 Ml Vial IV PER PROTOCOL PRN Low PTT Protocol Heparin Sodium/Sodium Chloride 250 mls @ 7.62 mls/hr 10/09/20 05:00 10/09/20 05:18 25,000 unit/ Sodium Chloride IV 12 units/kg/hr .Q24H GELACIO 7.62 mls/hr Administration Protocol 12 UNITS/KG/HR Ceftriaxone Sodium 1 gm/ 50 mls @ 100 mls/hr 10/10/20 09:00 Sodium Chloride IVPB Q24HR [facility] Levofloxacin 750 mg 10/10/20 09:00 Levofloxacin 750 Mg Tab PO DAILY [facility] Methylprednisolone Sodium Succinate 60 mg 10/09/20 06:00 10/09/20 06:16 Methylprednisolone Sod Succi 125 Mg/2 Ml Vial IV 60 mg Q6HR GELACIO Administration Intake and Output 10/08/20 10/09/20 10/09/20 22:59 06:59 14:59 Other: Weight 63.503 kg 10/09/20 03:17 10/09/20 03:17 Assessment and Plan Assessment: Assessment #1 pneumonia #2 COPD exacerbation #3 pleuritic chest discomfort #4 mildly abnormal troponin #5 history of smoking #6 hypertension and dyslipidemia Plan #1 consider conservative medical approach at this point #2 continue heparin IV #3 continue aspirin and atenolol and statin #4 follow-up with the serial cardiac enzymes will get 2 more sets to check the troponin trend #5 obtain an echocardiogram was Doppler #6 follow-up with the patient
[2020-10-09] MEDS: FAMOTIDINE 20 MG TAB PO SCH (12:35)
[2020-10-09] MEDS: ATORVASTATIN 20 MG TAB PO SCH (12:35)
[2020-10-09] MEDS: CITALOPRAM HYDROBROMIDE 20 MG TAB PO SCH (12:55)
[2020-10-09] MEDS: atenoloL 50 MG TAB PO SCH (12:57)
[2020-10-09] MEDS: CYANOCOBALAMIN 500 MCG TAB PO SCH (12:59)
[2020-10-09] MEDS: guaiFENesin 600 MG TABLET.ER PO SCH ×2 (13:00→20:19)
--- NOTE | 2020-10-09 15:00 | ECHOF ---
Referral Reason:NSTEMI MEASUREMENTS -------- HEIGHT: 172.7 cm WEIGHT: 63.5 kg BP: 130/93 RVIDd: 2.2 cm (< 3.3) IVSd: 1.1 cm (0.6 - 1.1) LVIDd: 3.7 cm (3.9 - 5.3) LVPWd: 1.2 cm (0.6 - 1.1) IVSs: 1.6 cm LVIDs: 2.0 cm LVPWs: 1.4 cm LA Diam: 2.6 cm (2.7 - 3.8) Ao Diam: 3.0 cm (2.0 - 3.7) AV Cusp: 1.8 cm (1.5 - 2.6) MV EXCURSION: 11.844 mm (> 18.000) MV EF SLOPE: 109 mm/s (70 - 150) EPSS: 0.6 cm MV E Jose: 0.93 m/s MV DecT: 212 ms MV A Jose: 0.88 m/s MV E/A Ratio: 1.06 FINDINGS -------- Sinus rhythm. This was a technically adequate study. The left ventricular size is normal. Left ventricular wall thickness is normal. Overall left vent ricular systolic function is normal with, an EF between 60 - 65 %. The right ventricle is normal in size. The left atrial size is normal. The right atrium is normal in size. Interatrial and interventricular septum intact. The aortic valve is trileaflet and appears structurally normal. The mitral valve is normal. The tricuspid valve appears structurally normal. The pulmonic valve was not well visualized. The aortic root size is normal. Normal inferior vena cava with normal inspiratory collapse consistent with estimated right atrial pre ssure of 5 mmHg. There is no pericardial effusion. CONCLUSIONS -------- 1. The left ventricular size is normal. 2. Left ventricular wall thickness is normal. 3. Overall left ventricular systolic function is normal with, an EF between 60 - 65 %. 4. There is no pericardial effusion. FIELD AUDITOR: Gita Verma RD
--- NOTE | 2020-10-09 15:49 | P.HPIM ---
History of Present Illness H&P Date: 10/09/20 Chief Complaint: Short of breath History of presenting complaint: This is a pleasant 55-year-old patient of Dr. tran from [place]. Chronic stable medical conditions include GERD, hypertension, chronic nicotine dependence. Patient's had previously 5 times collapse lung. Patient for 1 week has been increasing wheezing cough yellow sputum. Some chills. No obvious fever. Decreased appetite. Yesterday developed some pain in the right part of the chest. No radiation. No dizziness nor lightheadedness. Came in for the same. Rather short of breath at rest. Review of systems: GEN.: Tired EYES: None HEENT: None NECK: None RESPIRATORY: As above] CARDIOVASCULAR: None GASTROINTESTINAL: None GENITOURINARY: None MUSCULOSKELETAL: None LYMPHATICS: None HEMATOLOGICAL: None PSYCHIATRY: Anxious NEUROLOGICAL: None Past medical history to include: COPD, hypertension, GERD, microinfarction, collapsed lung stents 5, partial left lung removed, herniated disks of back pain, depression Social history: Smokes a pack a day for last 28 years, drinks normally one 12 ounce beer daily, marijuana occasionally, , Physical examination: VITAL SIGNS: 99, 77, 24, 130/93, 92% on 4 L GENERAL: BMI 21.3, propped up in bed, short of breath at rest. EYES: Pupils equal. Conjunctiva normal. HEENT: External appearance of nose and ears normal, oral cavity grossly normal. NECK: JVD not raised; masses not palpable. HEART: First and second heart sounds are normal; no edema. LUNGS: Respiratory rate increased, diminished breath sounds prolonged expiration and wheezing, accessory muscle working, not able to speak in full sentences. ABDOMEN: Soft, nontender, liver spleen not palpable, no masses palpable. PSYCH: Alert and oriented x3; mood and affect anxious NEUROLOGICAL: Cranial nerves grossly intact; no facial asymmetry, power and sensation grossly intact. LYMPHATICS: No lymph nodes palpable in the axilla and neck INVESTIGATIONS, reviewed in the clinical context: White count 14.7 hemoglobin 13.3 platelets 258 potassium 3.6 creatinine 0.83 Troponin I 0.436, 0.218, 0.156 COVID 19 P/Cr-not detected Influenza type A type B both negative EKG tracing personally reviewed by me-normal sinus rhythm Chest x-ray film personally reviewed by me-right basilar infiltrate Assessment: -Possible acute non-Q wave myocardial infarction. -Acute COPD exacerbation severe in a current smoker -Chronic nicotine dependence patient cigarette smoker -History of partial left pneumonectomy -GERD -Essential hypertension -Chronic herniated disc with lumbar pain -Acute hypoxic respiratory failure from underlying COPD - Plan: Patient be started on nebulized bronchodilators every 4 hours, inhaled and IV steroids. IV ceftriaxone. Home medications resumed. Patient put on IV heparin. Aspirin. Patient currently chest pain-free. Consultation made to cartilage and pulmonary. Care was discussed with the patient question also. Past Medical History Past Medical History: COPD, Eye Disorder, GERD/Reflux, Hypertension, Myocardial Infarction ([place]) Additional Past Medical History / Comment(s): vertigo, irregular heartbeat, 5 collapsed lungs- LEFT LUNG REMOVED, HERNIATED DISC WITH BACK PAIN, STATES SHE P ICKS AT HER SKIN., BILAT CATARACTS-removed Last Myocardial Infarction Date:: 1996 History of Any Multi-Drug Resistant Organisms: None Reported Additional Past Surgical History / Comment(s): PARTIAL left lung removed, colonoscopy Past Anesthesia/Blood Transfusion Reactions: Motion Sickness Past Psychological History: Depression Smoking Status: Current every day smoker Past Alcohol Use History: Daily Past Drug Use History: Marijuana - Past Family History Mother Family Medical History: Cancer, Deep Vein Thrombosis (DVT) Medications and Allergies Home Medications Medication Instructions Recorded Confirmed Type HYDROcodone/APAP 10-325MG [[place] 1 tab PO BID PRN 09/11/16 10/09/20 History 10-325] Meclizine [Antivert] 12.5 mg PO TID PRN 09/11/16 10/09/20 History Citalopram Hydrobromide 40 mg PO DAILY 03/19/18 10/09/20 History [Citalopram HBr] Albuterol Nebulized [Ventolin 2.5 mg INHALATION RT-TID PRN 10/09/20 10/09/20 History Nebulized] Atenolol [Tenormin] 50 mg PO DAILY 10/09/20 10/09/20 History Atorvastatin Calcium [Lipitor] 20 mg PO DAILY 10/09/20 10/09/20 History Cholecalciferol [Vitamin D3 (25 2,000 unit PO DAILY 10/09/20 10/09/20 History Mcg = 1000 Iu)] Cyanocobalamin (Vitamin B-12) 1,000 mcg PO DAILY 10/09/20 10/09/20 History [Vitamin B-12] Famotidine 40 mg PO DAILY 10/09/20 10/09/20 History guaiFENesin [Mucinex] 1,200 mg PO BID PRN 10/09/20 10/09/20 History Allergies Allergy/AdvReac Type Severity Reaction Status Date / Time iron Allergy Unknown Unknown Verified 10/09/20 09:09 Childhood erythromycin base Allergy BREATHING Verified 10/09/20 09:09 DIFFICULTY. Penicillins Allergy Unknown Verified 10/09/20 09:09 Childhood pneumococcal vaccine Allergy Unknown Verified 10/09/20 09:09 [From Prevmay 13 (PF)] Physical Exam Vitals: Vital Signs Temp Pulse Resp BP Pulse Ox 10/09/20 08:47 67 10/09/20 08:33 75 94 L 10/09/20 04:43 88 20 130/93 92 L 10/09/20 03:04 99 F 77 24 164/100 99 Intake and Output 10/08/20 10/09/20 10/09/20 22:59 06:59 14:59 Other: Weight 63.503 kg Results CBC & Chem 7: 10/09/20 03:17 10/09/20 03:17 Labs: Abnormal Lab Results - Last 24 Hours (Table) 10/09/20 10/09/20 Range/Units 03:17 03:17 WBC 14.7 H (3.8-10.6) k/uL MCV 103.5 H (80.0-100.0) fL Neutrophils # 11.6 H (1.3-7.7) k/uL Troponin I 0.436 H* (0.000-0.034) ng/mL
[2020-10-09] MEDS: NICOTINE 21MG/24HR PATCH TRANSDERM SCH (17:03)
[2020-10-09] MEDS: BUDESONIDE 1 MG/2 ML NEBU INHALATION SCH (21:13)
[2020-10-09] MEDS: FORMOTEROL FUMARATE 20 MCG/2 ML NEBU INHALATION SCH (21:14)
[2020-10-10] MEDS: IPRATROPIUM-ALBUTEROL 3 ML NEB INHALATION SCH ×6 (00:26→20:48)
[2020-10-10] MEDS: methylPREDNISolone SOD SUCCI 125 MG/2 ML VIAL IV SCH ×4 (00:31→17:06)
[2020-10-10] MEDS: FORMOTEROL FUMARATE 20 MCG/2 ML NEBU INHALATION SCH ×2 (08:00→20:48)
[2020-10-10] MEDS: BUDESONIDE 1 MG/2 ML NEBU INHALATION SCH ×2 (08:00→20:48)
[2020-10-10 08:34] LABS: Basophils % (A) 0 %; Eosinophils % (A) 0 %; HCT 39.6 % (34.0-46.0); HGB 12.9 gm/dL (11.4-16.0); Lymphocytes # (A) 0.7 k/uL (1.0-4.8); Lymphocytes % (A) 4 %; MCH 34.8 pg (25.0-35.0); MCHC 32.5 g/dL (31.0-37.0); Macrocytosis Moderate; Mean Platelet Volume 8.2; Monocytes # (A) 0.3 k/uL (0-1.0); Monocytes % (A) 2 %; Neutrophils # (A) 15.8 k/uL (1.3-7.7); Neutrophils % (A) 94 %; Platelet Count 233 k/uL (150-450); RDW 12.8 % (11.5-15.5); WBC 16.8 k/uL (3.8-10.6)
[2020-10-10] MEDS: HYDROcodone/APAP 10-325MG 1 EACH TAB PO PRN ×2 (08:58→18:39)
[2020-10-10] MEDS: atenoloL 50 MG TAB PO SCH (08:59)
[2020-10-10] MEDS: LEVOFLOXACIN 750 MG TAB PO SCH (08:59)
[2020-10-10] MEDS: CITALOPRAM HYDROBROMIDE 20 MG TAB PO SCH (09:00)
[2020-10-10] MEDS: ATORVASTATIN 20 MG TAB PO SCH (09:00)
[2020-10-10] MEDS: CYANOCOBALAMIN 500 MCG TAB PO SCH (09:00)
[2020-10-10] MEDS: FAMOTIDINE 20 MG TAB PO SCH (09:00)
[2020-10-10] MEDS: guaiFENesin 600 MG TABLET.ER PO SCH ×2 (09:00→20:35)
[2020-10-10] MEDS: NICOTINE 21MG/24HR PATCH TRANSDERM SCH (09:05)
--- NOTE | 2020-10-10 10:31 | P.PN ---
Subjective Progress Note Date: 10/10/20 This is a 55-year-old female patient with past medical history of nicotine dependence, COPD, hypertension, hyperlipidemia, who initially presented to the hospital with symptoms of chest discomfort with associated shortness of breath, and cough. He was seen in consultation by Dr. Young, her EKG did not show any significant ST-T wave changes. Troponins 0.4, 0.2, 0.1. White blood cell count 16.8, hemoglobin 12.9, platelet count 233. Echocardiogram with Doppler study revealed an ejection fraction of 60-65%. We will add a baby aspirin to his medication regime, continue beta jayson, add a small statin dose, and discontinue the IV heparin today. Objective - Vital Signs Vital signs: Vital Signs Temp 98.3 F 10/10/20 08:00 Pulse 56 L 10/10/20 08:22 Resp 20 10/10/20 08:00 BP 162/97 10/10/20 08:00 Pulse Ox 99 10/10/20 08:00 Intake & Output 10/09/20 10/10/20 10/10/20 18:59 06:59 18:59 Intake Total 240 900 240 Output Total 0 Balance 240 900 240 Weight 63.503 kg 65.5 kg Intake: Oral 240 900 240 Output: Urine 0 Stool 0 Other: Voiding Method Toilet # Voids 1 # Bowel Movements 0 - Exam GENERAL EXAM: Alert, pleasant 55-year-old female patient, on 6 L nasal cannula, fairly comfortable in no apparent distress. HEAD: Normocephalic. EYES: Normal reaction of pupils, equal size. NOSE: Clear with pink turbinates. THROAT: No erythema or exudates. NECK: No masses, no JVD. CHEST: No chest wall deformity. LUNGS: Equal air entry with bilateral scattered rhonchi, end expiratory wheeze, diminished. CVS: S1 and S2 normal with no audible murmur, regular rhythm. ABDOMEN: No hepatosplenomegaly, normal bowel sounds, no guarding or rigidity. SPINE: No scoliosis or deformity SKIN: No rashes CENTRAL NERVOUS SYSTEM: No focal deficits, tone is normal in all 4 extremities. EXTREMITIES: There is no peripheral edema. No clubbing, no cyanosis. Peripheral pulses are intact. - Labs CBC & Chem 7: 10/10/20 07:47 10/09/20 03:17 Labs: Abnormal Lab Results - Last 24 Hours (Table) 10/09/20 10/09/20 10/09/20 Range/Units 10:09 10:09 14:02 WBC (3.8-10.6) k/uL RBC (3.80-5.40) m/uL MCV (80.0-100.0) fL Neutrophils # (1.3-7.7) k/uL Lymphocytes # (1.0-4.8) k/uL APTT 51.7 H (22.0-30.0) sec Troponin I 0.218 H* 0.156 H* (0.000-0.034) ng/mL 10/10/20 Range/Units 07:47 WBC 16.8 H (3.8-10.6) k/uL RBC 3.70 L (3.80-5.40) m/uL MCV 107.0 H (80.0-100.0) fL Neutrophils # 15.8 H (1.3-7.7) k/uL Lymphocytes # 0.7 L (1.0-4.8) k/uL APTT (22.0-30.0) sec Troponin I (0.000-0.034) ng/mL Microbiology - Last 24 Hours (Table) 10/09/20 03:21 Blood Culture - Preliminary Blood No Growth after 24 hours Assessment and Plan Plan: Assessment and plan #1 acute hypoxic respiratory failure secondary to an acute right lower lobe pneumonia #2 chest wall pain, atypical for acute coronary syndrome, troponins 0.4, 0.2, 0.1. #3 nicotine dependence #4 marijuana use #5 COPD exacerbation Plan We will discontinue the IV heparin, add a baby aspirin and statin to the patient's medication regime. Echo revealed normal left ventricular systolic function. DNP note has been reviewed, I agree with a documented findings and plan of care. Patient was seen and examined.
[2020-10-10] MEDS: HEPARIN SOD,PORK IN 0.45% NACL 25,000 UNIT in 0.45% NACL 1 250ML.BAG IV SCH (11:44)
--- NOTE | 2020-10-10 13:15 | XR ---
EXAMINATION TYPE: XR chest 2V DATE OF EXAM: 10/10/2020 COMPARISON: 10/09/2020 HISTORY: Shortness of breath TECHNIQUE: Frontal and lateral views of the chest are obtained. FINDINGS: Scattered senescent parenchymal changes noted. Hyperinflation compatible with COPD. Resolution of previously noted infiltrate at the right medial lung base. Apical scarring and emphysem atous changes noted. Heart size is stable. Mediastinal structures are stable and grossly unremarkable. No evidence for hilar prominence. Degenerative changes dorsal spine. IMPRESSION: 1. Resolution of previously noted infiltrate at the right medial lung base. Apical scarring and emphy sematous changes noted.
--- NOTE | 2020-10-10 16:42 | P.PN ---
Subjective Progress Note Date: 10/10/20 Principal diagnosis: Acute hypoxic respiratory failure secondary to an acute right lower lobe pneumonia, community-acquired This is a very pleasant 55-year-old female patient who follows with Dr. Garcia as her primary care provider. She has a history of chronic and ongoing tobacco dependence, chronic obstructive pulmonary disease, spontaneous pneumothorax bilaterally with previous chest tube placements and suspected lobectomy on the left side years ago, hypertension, myocardial infarction, irregular heartbeat, depression. She presented here to the emergency room early this morning with complaints of increasing shortness of breath, cough congestion intermittent chest pain. She had been treated for bronchitis for the past several days with not much improvement. Chest x-ray reveals right basilar opacity. EKG reveals sinus rhythm without any significant ST or T wave abnormalities. Troponin 0.436 and she was initiated on heparin drip. Coronavirus test negative. White count 14.7. Hemoglobin 13.3. Sodium 137. Potassium 3.6. Creatinine 0.83. She has been initiated on DuoNeb inhalations, IV Solu-Medrol, heparin drip. She is seen today in consultation in the emergency room. Presently she is awake and alert in no acute distress. She is dyspneic with conversation. She is requiring 6 L nasal cannula to maintain O2 saturations in the low 90s. The patient is seen today 10/10/2020 in follow-up on the selective care unit. She is currently awake and alert in no acute distress. She is breathing a bit easier today compared to yesterday. He is maintaining O2 saturations up to 100% on 4 L/m per nasal cannula. She's been afebrile. Hemodynamically stable. Blood cultures reveal no growth to date. White count 16.8. Hemoglobin 12.9. Coronavirus not detected. Peak troponin 0.436 trending down. She remains on IV Solu-Medrol, bronchodilators, NicoDerm patch. Antibiotics in form of ceftriaxone and Levaquin. Chest x-ray reveals resolution of previously noted infiltrate in the right medial lung base. Apical scarring and emphysematous changes noted. Objective - Vital Signs Vital signs: Vital Signs Temp 98.1 F 10/10/20 15:47 Pulse 53 L 10/10/20 15:47 Resp 20 10/10/20 15:47 BP 158/87 10/10/20 15:47 Pulse Ox 100 10/10/20 15:47 Intake & Output 10/09/20 10/10/20 10/10/20 18:59 06:59 18:59 Intake Total 240 900 420 Output Total 0 Balance 240 900 420 Weight 63.503 kg 65.5 kg Intake: Oral 240 900 420 Output: Urine 0 Stool 0 Other: Voiding Method Toilet # Voids 1 1 # Bowel Movements 0 - Exam GENERAL EXAM: Alert, pleasant 55-year-old female patient, on 4 L nasal cannula, fairly comfortable in no apparent distress. HEAD: Normocephalic. EYES: Normal reaction of pupils, equal size. NOSE: Clear with pink turbinates. THROAT: No erythema or exudates. NECK: No masses, no JVD. CHEST: No chest wall deformity. LUNGS: Equal air entry with end expiratory wheeze, diminished. CVS: S1 and S2 normal with no audible murmur, regular rhythm. ABDOMEN: No hepatosplenomegaly, normal bowel sounds, no guarding or rigidity. SPINE: No scoliosis or deformity SKIN: No rashes CENTRAL NERVOUS SYSTEM: No focal deficits, tone is normal in all 4 extremities. EXTREMITIES: There is no peripheral edema. No clubbing, no cyanosis. Peripheral pulses are intact. - Labs CBC & Chem 7: 10/10/20 07:47 10/09/20 03:17 Labs: Abnormal Lab Results - Last 24 Hours (Table) 10/10/20 Range/Units 07:47 WBC 16.8 H (3.8-10.6) k/uL RBC 3.70 L (3.80-5.40) m/uL MCV 107.0 H (80.0-100.0) fL Neutrophils # 15.8 H (1.3-7.7) k/uL Lymphocytes # 0.7 L (1.0-4.8) k/uL Microbiology - Last 24 Hours (Table) 10/09/20 03:21 Blood Culture - Preliminary Blood No Growth after 24 hours Assessment and Plan Assessment: 1 Acute hypoxic respiratory failure secondary to an acute right lower lobe pneumonia, community-acquired, with acute exacerbation of chronic obstructive pulmonary disease. CoVID 19 screen negative. Influenza screen negative. 2 Acute exacerbation of chronic obstructive pulmonary disease 3 Chest wall pain with mildly elevated troponin, initiated on a heparin drip and was discontinued, to be treated medically 4 Chronic and ongoing tobacco dependence 5 Previous history of multiple bilateral spontaneous pneumothoraces with chest tube placement, left-sided suspected blebectomy 6 Marijuana use 7 History of depression Plan: The patient was seen and evaluated by Dr. Moran Chest x-ray and labs reviewed Right lung pneumonia cleared Continue the current treatment plan Titrate down the FiO2 as tolerated Heparin drip discontinued, to be treated medically We will continue to follow and make further recommendations based on her clinical status I, the cosigning physician, performed a history & physical examination of the patient. Lungs sounds with end expiratory wheeze, diminished. Maintaining good O2 saturations in the 90s on 4 L high flow nasal cannula. I discussed the assessment and plan of care with my nurse practitioner, Gi Travis. I attest to the above note as dictated by her.
--- NOTE | 2020-10-10 20:35 | P.PN ---
Progress Note - Text Progress Note Date: 10/10/20 Chief Complaint: Short of breath History of presenting complaint: This is a pleasant 55-year-old patient of Dr. tran from [place]. Chronic stable medical conditions include GERD, hypertension, chronic nicotine dependence. Patient's had previously 5 times collapse lung. Patient for 1 week has been increasing wheezing cough yellow sputum. Some chills. No obvious fever. Decreased appetite. Yesterday developed some pain in the right part of the chest. No radiation. No dizziness nor lightheadedness. Came in for the same. Rather short of breath at rest. admitted with acute COPD exacerbationand possible acute non-Q wave DE. Started on nebulized bronchodilators, IV Solu-Medrol, IV ceftriaxone. Also received aspirin and beta jayson Lipitor. Today-breathing a bit better. Less wheezing. Oral intake better. Heparin drip discontinued. Review of systems: Was done for constitutional, cardiovascular, GI, pulmonary. relevant finding as above Active Medications Acetaminophen (Acetaminophen Tab 325 Mg Tab) 650 mg PO Q6HR PRN PRN Reason: Fever and/ or Pain Hydrocodone Bitart/Acetaminophen (Hydrocodone/Apap 10-325mg 1 Each Tab) 1 each PO BID PRN PRN Reason: Pain Last Admin: 10/10/20 18:39 Dose: 1 each Documented by: Albuterol/Ipratropium (Ipratropium-Albuterol 3 Ml Neb) 3 ml INHALATION RT-Q4H PRN PRN Reason: Shortness Of Breath Or Wheezing Albuterol/Ipratropium (Ipratropium-Albuterol 3 Ml Neb) 3 ml INHALATION Q4H [facility] Last Admin: 10/10/20 17:14 Dose: Not Given Documented by: Aspirin (Aspirin 81 Mg) 81 mg PO DAILY [facility] Atenolol (Atenolol 50 Mg Tab) 50 mg PO DAILY [facility] Last Admin: 10/10/20 08:59 Dose: 50 mg Documented by: Atorvastatin Calcium (Atorvastatin 20 Mg Tab) 20 mg PO DAILY [facility] Last Admin: 10/10/20 09:00 Dose: 20 mg Documented by: Budesonide (Budesonide 1 Mg/2 Ml Nebu) 1 mg INHALATION RT-BID [facility] Last Admin: 10/10/20 08:00 Dose: 1 mg Documented by: Citalopram Hydrobromide (Citalopram Hydrobromide 20 Mg Tab) 40 mg PO DAILY [facility] Last Admin: 10/10/20 09:00 Dose: 40 mg Documented by: Cyanocobalamin (Cyanocobalamin 500 Mcg Tab) 1,000 mcg PO DAILY [facility] Last Admin: 10/10/20 09:00 Dose: 1,000 mcg Documented by: Famotidine (Famotidine 20 Mg Tab) 40 mg PO DAILY [facility] Last Admin: 10/10/20 09:00 Dose: 40 mg Documented by: Formoterol Fumarate (Formoterol Fumarate 20 Mcg/2 Ml Nebu) 20 mcg INHALATION RT-BID [facility] Last Admin: 10/10/20 08:00 Dose: 20 mcg Documented by: Guaifenesin (Guaifenesin 600 Mg Tablet.Er) 1,200 mg PO Q12HR [facility] Last Admin: 10/10/20 09:00 Dose: 1,200 mg Documented by: Ceftriaxone Sodium 1 gm/ (Sodium Chloride) 50 mls @ 100 mls/hr IVPB Q24HR [facility] Last Admin: 10/10/20 09:00 Dose: 100 mls/hr Documented by: Levofloxacin (Levofloxacin 750 Mg Tab) 750 mg PO DAILY [facility] Last Admin: 10/10/20 08:59 Dose: 750 mg Documented by: Methylprednisolone Sodium Succinate (Methylprednisolone Sod Succi 125 Mg/2 Ml Vial) 60 mg IV Q6HR [facility] Last Admin: 10/10/20 17:06 Dose: 60 mg Documented by: Nicotine (Nicotine 21mg/24hr Patch) 1 patch TRANSDERM DAILY [facility] Last Admin: 10/10/20 09:05 Dose: 1 patch Documented by: Physical examination: VITAL SIGNS: 96.9, 68, 20, 12/24/1984, 98% on 4 L GENERAL: sitting up in bed, breathing better EYES: Pupils equal. Conjunctiva normal. NECK: JVD not raised; masses not palpable. HEART: First and second heart sounds are normal; no edema. LUNGS: Respiratory rate increased, diminished breath sounds prolonged expiration ABDOMEN: Soft, nontender, liver spleen not palpable, no masses palpable. PSYCH: Alert and oriented x3; mood and affect -lessanxious INVESTIGATIONS, reviewed in the clinical context: White count 16.8 hemoglobin 12.9 Previous testing White count 14.7 hemoglobin 13.3 platelets 258 potassium 3.6 creatinine 0.83 Troponin I 0.436, 0.218, 0.156 COVID 19 P/Cr-not detected Influenza type A type B both negative EKG tracing personally reviewed by me-normal sinus rhythm Chest x-ray film personally reviewed by me-right basilar infiltrate Assessment: -Possible acute non-Q wave myocardial infarction. -Acute COPD exacerbation severe in a current smoker-slowly improving -Chronic nicotine dependence patient cigarette smoker -History of partial left pneumonectomy -GERD -Essential hypertension -Chronic herniated disc with lumbar pain -Acute hypoxic respiratory failure from underlying COPD-slowly improving - Plan: continuenebulized bronchodilators every 4 hours, inhaled and IV steroids. IV ceftriaxone. discontinued- IV heparin. Aspirin. encouraged to ambulate. Discussed with patient.
[2020-10-11] MEDS: IPRATROPIUM-ALBUTEROL 3 ML NEB INHALATION SCH ×4 (00:02→12:26)
[2020-10-11] MEDS: methylPREDNISolone SOD SUCCI 125 MG/2 ML VIAL IV SCH ×2 (00:17→06:28)
[2020-10-11 08:24] LABS: Basophils % (A) 0 %; Eosinophils # (A) 0.2 k/uL (0-0.7); Eosinophils % (A) 1 %; HCT 40.2 % (34.0-46.0); Lymphocytes # (A) 0.5 k/uL (1.0-4.8); Lymphocytes % (A) 3 %; MCH 34.3 pg (25.0-35.0); MCHC 32.4 g/dL (31.0-37.0); MCV 105.9 fL (80.0-100.0); Macrocytosis Moderate; Mean Platelet Volume 8.8; Monocytes # (A) 0.2 k/uL (0-1.0); Monocytes % (A) 1 %; Neutrophils # (A) 17.5 k/uL (1.3-7.7); Neutrophils % (A) 95 %; Platelet Count 283 k/uL (150-450); RBC 3.79 m/uL (3.80-5.40); WBC 18.4 k/uL (3.8-10.6)
[2020-10-11] MEDS ORDERED: ASPIRIN 81 MG PO SCH (09:00)
[2020-10-11] MEDS: BUDESONIDE 1 MG/2 ML NEBU INHALATION SCH (09:14)
[2020-10-11] MEDS: FORMOTEROL FUMARATE 20 MCG/2 ML NEBU INHALATION SCH (09:14)
[2020-10-11] MEDS ORDERED: lisinopriL 5 MG TAB PO SCH (09:30)
[2020-10-11] MEDS ORDERED: ATORVASTATIN 40 MG TAB PO SCH (09:55)
[2020-10-11] MEDS: atenoloL 50 MG TAB PO SCH (10:24)
[2020-10-11] MEDS: FAMOTIDINE 20 MG TAB PO SCH (10:24)
[2020-10-11] MEDS: CYANOCOBALAMIN 500 MCG TAB PO SCH (10:24)
[2020-10-11] MEDS: CITALOPRAM HYDROBROMIDE 20 MG TAB PO SCH (10:24)
[2020-10-11] MEDS: LEVOFLOXACIN 750 MG TAB PO SCH (10:24)
[2020-10-11] MEDS: guaiFENesin 600 MG TABLET.ER PO SCH (10:24)
[2020-10-11] MEDS: NICOTINE 21MG/24HR PATCH TRANSDERM SCH (10:25)
[2020-10-11 10:31] VITALS: TEMP 98
[2020-10-11] MEDS ORDERED: predniSONE 20 MG TAB PO SCH (11:30)
--- NOTE | 2020-10-11 12:01 | P.PN ---
Subjective Progress Note Date: 10/11/20 HISTORY OF PRESENT ILLNESS: Patient examined this morning at the bedside. She states she is feeling great this morning is hoping to be discharged home. She denies shortness of breath. She denies chest pain or pressure. She remains on IV steroids and antibiotics. Patient's blood pressure overnight was elevated with systolics in the 150s and 160s. PHYSICAL EXAM: VITAL SIGNS: Reviewed. GENERAL: Well-developed in no acute distress. NECK: Supple. No JVD or thyromegaly LUNGS: Respirations even and unlabored. Lungs diminished. HEART: Regular rate and rhythm. S1 and S2 heard. EXTREMITIES: Normal range of motion. No clubbing or cyanosis. Peripheral puls es intact. No lower extremity edema ASSESSMENT: Acute hypoxic respiratory failure secondary to right lower lobe pneumonia Acute exacerbation of COPD Chest wall pain, atypical for acute coronary syndrome Nicotine dependence Marijuana use PLAN: Continue current medication regimen Add lisinopril 5 mg twice a day for possible blood pressure control Patient is stable for discharge from a cardiac standpoint. She is to follow up outpatient with Dr. Aldrich Nurse practitioner note has been reviewed by physician. Signing provider agrees with the documented findings, assessment, and plan of care. Objective - Vital Signs Vital signs: Vital Signs Temp 98 F 10/11/20 10:30 Pulse 70 10/11/20 10:30 Resp 18 10/11/20 10:30 BP 138/90 10/11/20 10:30 Pulse Ox 95 10/11/20 10:30 Intake & Output 10/10/20 10/11/20 10/11/20 18:59 06:59 18:59 Intake Total 420 300 Balance 420 300 Weight 65.5 kg Intake: Intake, IV Titration 50 Amount cefTRIAXone 1 gm In 50 Sodium Chloride 0.9% 50 ml @ 100 mls/hr IVPB Q24HR [facility] Rx#:[id number] Oral 420 250 Other: Voiding Method Toilet # Voids 1 3 1 - Labs CBC & Chem 7: 10/11/20 07:44 10/09/20 03:17 Labs: Abnormal Lab Results - Last 24 Hours (Table) 10/11/20 Range/Units 07:44 WBC 18.4 H (3.8-10.6) k/uL RBC 3.79 L (3.80-5.40) m/uL MCV 105.9 H (80.0-100.0) fL Neutrophils # 17.5 H (1.3-7.7) k/uL Lymphocytes # 0.5 L (1.0-4.8) k/uL Microbiology - Last 24 Hours (Table) 10/09/20 03:21 Blood Culture - Preliminary Blood No Growth after 48 hours
[2020-10-11 13:05] VITALS: BP 140/77; PULSE 73; RESP 16
--- NOTE | 2020-10-11 17:56 | P.PN ---
Subjective Progress Note Date: 10/11/20 Acute hypoxic respiratory failure secondary to an acute right lower lobe pneumo saniya, community-acquired This is a very pleasant 55-year-old female patient who follows with Dr. Garcia as her primary care provider. She has a history of chronic and ongoing tobacco dependence, chronic obstructive pulmonary disease, spontaneous pneumothorax bilaterally with previous chest tube placements and suspected lobectomy on the left side years ago, hypertension, myocardial infarction, irregular heartbeat, depression. She presented here to the emergency room early this morning with co mplaints of increasing shortness of breath, cough congestion intermittent chest pain. She had been treated for bronchitis for the past several days with not much improvement. Chest x-ray reveals right basilar opacity. EKG reveals sinus rhythm without any significant ST or T wave abnormalities. Troponin 0.436 and she was initiated on heparin drip. Coronavirus test negative. White count 14.7. Hemoglobin 13.3. Sodium 137. Potassium 3.6. Creatinine 0.83. She has been initiated on DuoNeb inhalations, IV Solu-Medrol, heparin drip. She is seen today in consultation in the emergency room. Presently she is awake and alert in no acute distress. She is dyspneic with conversation. She is requiring 6 L nasal cannula to maintain O2 saturations in the low 90s. The patient is seen today 10/10/2020 in follow-up on the selective care unit. She is currently awake and alert in no acute distress. She is breathing a bit easier today compared to yesterday. He is maintaining O2 saturations up to 100% on 4 L/m per nasal cannula. She's been afebrile. Hemodynamically stable. Blood cultures reveal no growth to date. White count 16.8. Hemoglobin 12.9. Coronavirus not detected. Peak troponin 0.436 trending down. She remains on IV Solu-Medrol, bronchodilators, NicoDerm patch. Antibiotics in form of ceftriaxone and Levaquin. Chest x-ray reveals resolution of previously noted infiltrate in the right medial lung base. Apical scarring and emphysematous changes noted. On 10/11/2020, the patient is feeling well. No specific complaints. Overall she is feeling better. She is less short of breath compared to yesterday. The patient has no chest pain. She was treated and accommodation bronchodilators, IV Solu-Medrol and antibiotics. No other significant events overnight. The patient is a chronic smoker. The patient was seen also by cardiology. Objective - Vital Signs Vital signs: Vital Signs Temp 98 F 10/11/20 10:30 Pulse 73 10/11/20 13:03 Resp 16 10/11/20 13:03 BP 140/77 10/11/20 13:03 Pulse Ox 95 10/11/20 13:03 Intake & Output 10/10/20 10/11/20 10/11/20 18:59 06:59 18:59 Intake Total 420 530 Output Total 600 Balance 420 -70 Weight 65.5 kg Intake: Intake, IV Titration 50 Amount cefTRIAXone 1 gm In 50 Sodium Chloride 0.9% 50 ml @ 100 mls/hr IVPB Q24HR [facility] Rx#:[id number] Oral 420 480 Output: Urine 600 Stool 0 Other: Voiding Method Toilet Toilet # Voids 1 3 1 - Exam GENERAL EXAM: Alert, pleasant 55-year-old female patient, on 4 L nasal cannula, fairly comfortable in no apparent distress. HEAD: Normocephalic. EYES: Normal reaction of pupils, equal size. NOSE: Clear with pink turbinates. THROAT: No erythema or exudates. NECK: No masses, no JVD. CHEST: No chest wall deformity. LUNGS: Equal air entry with end expiratory wheeze, diminished. CVS: S1 and S2 normal with no audible murmur, regular rhythm. ABDOMEN: No hepatosplenomegaly, normal bowel sounds, no guarding or rigidity. SPINE: No scoliosis or deformity SKIN: No rashes CENTRAL NERVOUS SYSTEM: No focal deficits, tone is normal in all 4 extremities. EXTREMITIES: There is no peripheral edema. No clubbing, no cyanosis. Peripheral pulses are intact. - Labs CBC & Chem 7: 10/11/20 07:44 10/09/20 03:17 Labs: Abnormal Lab Results - Last 24 Hours (Table) 10/11/20 Range/Units 07:44 WBC 18.4 H (3.8-10.6) k/uL RBC 3.79 L (3.80-5.40) m/uL MCV 105.9 H (80.0-100.0) fL Neutrophils # 17.5 H (1.3-7.7) k/uL Lymphocytes # 0.5 L (1.0-4.8) k/uL Microbiology - Last 24 Hours (Table) 10/09/20 03:21 Blood Culture - Preliminary Blood No Growth after 48 hours Assessment and Plan Plan: 1 Acute hypoxic respiratory failure secondary to an acute right lower lobe pneumonia, community-acquired, with acute exacerbation of chronic obstructive pulmonary disease. CoVID 19 screen negative. Influenza screen negative. Chest x-ray from 10/10/2020 showed resolution of the right lower lobe pneumonia. 2 Acute exacerbation of chronic obstructive pulmonary disease, improved 3 Chest wall pain with mildly elevated troponin, initiated on a heparin drip and was discontinued, to be treated medically 4 Chronic and ongoing tobacco dependence 5 Previous history of multiple bilateral spontaneous pneumothoraces with chest tube placement, left-sided suspected blebectomy 6 Marijuana use 7 History of depression PLAN Patient can be discharged home today. The patient will be completing a course of antibiotic on outpatient basis with Ceftin 500 mg by mouth twice a day, prednisone burst taper, in addition to Symbicort as maintenance and albuterol about treatments around the clock. Continue oxygen therapy. Follow-up in the office.
--- NOTE | 2020-10-11 22:47 | P.DS ---
Providers Date of admission: 10/09/20 04:29 Expected date of discharge: 10/11/20 Attending physician: Glen Cloud Consults: 10/09/20 04:29 Consult Physician Routine Consulting Provider: Nolberto Moran Consult Reason/Comments: copd, pna Do you want consulting provider notified?: Yes 10/09/20 05:02 Consult Physician Routine Consulting Provider: Kristal Brasher Consult Reason/Comments: nstemi Do you want consulting provider notified?: Yes Primary care physician: Gaurav Garcia MD Hospital Course: Chief Complaint: Short of breath History of presenting complaint: This is a pleasant 55-year-old patient of Dr. garcia from [place]. Chronic stable medical conditions include GERD, hypertension, chronic nicotine dependence. Patient's had previously 5 times collapse lung. Patient for 1 week has been increasing wheezing cough yellow sputum. Some chills. No obvious fever. Decreased appetite. Yesterday developed some pain in the right part of the chest. No radiation. No dizziness nor lightheadedness. Came in for the same. Rather short of breath at rest. admitted with acute COPD exacerbation and possible acute non-Q wave ME. Started on nebulized bronchodilators, IV Solu-Medrol, IV ceftriaxone. Also received aspirin and beta jayson Lipitor. Was initially put on IV heparin drip. Today-feeling better. Care was discussed with the patient. No chest pain. Breathing much improved. Consultation: Dr. Moran [facility] Physical examination: VITAL SIGNS: 98, 70, 18, 138/90, 95% room air GENERAL: sitting up in bed, breathing better EYES: Pupils equal. Conjunctiva normal. NECK: JVD not raised; masses not palpable. HEART: First and second heart sounds are normal; no edema. LUNGS: Respiratory rate increased, diminished breath sounds prolonged expiration ABDOMEN: Soft, nontender, liver spleen not palpable, no masses palpable. PSYCH: Alert and oriented x3; mood and affect -lessanxious INVESTIGATIONS, reviewed in the clinical context: White count 16.8 hemoglobin 12.9 Previous testing White count 14.7 hemoglobin 13.3 platelets 258 potassium 3.6 creatinine 0.83 Troponin I 0.436, 0.218, 0.156 COVID 19 P/Cr-not detected Influenza type A type B both negative EKG tracing personally reviewed by me-normal sinus rhythm Chest x-ray film personally reviewed by me-right basilar infiltrate 2-D echocardiogram-EF 60 have a 65% Assessment: -Possible acute non-Q wave myocardial infarction, POA. -Acute COPD exacerbation severe in a current, POA improved -Chronic nicotine dependence patient cigarette smoker -History of partial left pneumonectomy -GERD -Essential hypertension -Chronic herniated disc with lumbar pain -Acute hypoxic respiratory failure from underlying COPD POA Disposition: Home Patient Condition at Discharge: Stable Plan - Discharge Summary Discharge Rx Participant: Yes New Discharge Prescriptions: New Aspirin 81 mg PO DAILY #30 chew Cefuroxime Axetil [Ceftin] 500 mg PO BID #4 tab Nicotine 21Mg/24Hr Patch [Habitrol] 1 patch TRANSDERM DAILY #1 patch predniSONE 0 mg PO DIRECTED #10 tab Budesonide-Formot 160-4.5 Mcg [Symbicort 160-4.5 Mcg Inhaler] 1 puff INHALATION BID #1 inhaler lisinopriL [Zestril] 5 mg PO BID #60 tab Continue Meclizine [Antivert] 12.5 mg PO TID PRN PRN Reason: vertigo HYDROcodone/APAP 10-325MG [[place] 10-325] 1 tab PO BID PRN PRN Reason: Pain Citalopram Hydrobromide [Citalopram HBr] 40 mg PO DAILY Cyanocobalamin (Vitamin B-12) [Vitamin B-12] 1,000 mcg PO DAILY Famotidine 40 mg PO DAILY Cholecalciferol [Vitamin D3 (25 Mcg = 1000 Iu)] 2,000 unit PO DAILY Atorvastatin Calcium [Lipitor] 20 mg PO DAILY Atenolol [Tenormin] 50 mg PO DAILY Albuterol Nebulized [Ventolin Nebulized] 2.5 mg INHALATION RT-TID PRN PRN Reason: Shortness Of Breath guaiFENesin [Mucinex] 1,200 mg PO BID PRN PRN Reason: Cough Discharge Medication List HYDROcodone/APAP 10-325MG [[place] 10-325] 1 tab PO BID PRN 09/11/16 [History] Meclizine [Antivert] 12.5 mg PO TID PRN 09/11/16 [History] Citalopram Hydrobromide [Citalopram HBr] 40 mg PO DAILY 03/19/18 [History] Albuterol Nebulized [Ventolin Nebulized] 2.5 mg INHALATION RT-TID PRN 10/09/20 [History] Atenolol [Tenormin] 50 mg PO DAILY 10/09/20 [History] Atorvastatin Calcium [Lipitor] 20 mg PO DAILY 10/09/20 [History] Cholecalciferol [Vitamin D3 (25 Mcg = 1000 Iu)] 2,000 unit PO DAILY 10/09/20 [History] Cyanocobalamin (Vitamin B-12) [Vitamin B-12] 1,000 mcg PO DAILY 10/09/20 [History] Famotidine 40 mg PO DAILY 10/09/20 [History] guaiFENesin [Mucinex] 1,200 mg PO BID PRN 10/09/20 [History] Aspirin 81 mg PO DAILY #30 chew 10/11/20 [Rx] Budesonide-Formot 160-4.5 Mcg [Symbicort 160-4.5 Mcg Inhaler] 1 puff INHALATION BID #1 inhaler 10/11/20 [Rx] Cefuroxime Axetil [Ceftin] 500 mg PO BID #4 tab 10/11/20 [Rx] Nicotine 21Mg/24Hr Patch [Habitrol] 1 patch TRANSDERM DAILY #1 patch 10/11/20 [Rx] lisinopriL [Zestril] 5 mg PO BID #60 tab 10/11/20 [Rx] predniSONE 0 mg PO DIRECTED #10 tab 10/11/20 [Rx] Follow up Appointment(s)/Referral(s): Sage Aldrich MD [STAFF PHYSICIAN] - 1 Week (Office will call you with appointment.) Nolberto Moran DO [Doctor of Osteopathic Medicine] - 11/05/20 9:00 am (You may call office to check if there have been any cancellations for an eariler appointment.) Gaurav Garcia MD [Primary Care Provider] - 1-2 days Patient Instructions/Handouts: COPD (Chronic Obstructive Pulmonary Disease) (DC), Community Acquired Pneumonia (DC) Discharge Disposition: HOME SELF-CARE
[2020-10-12] MEDS ORDERED: ATORVASTATIN 40 MG TAB PO SCH (09:00)
--- NOTE | 2020-10-13 11:00 | CDI ---
Documentation Clarification Form Date: 10/13/20 From: Marissa Seymour Phone: If you have a question about this query, please contact Trista Desouza, [place] at [phone] between 8am and 5pm. Admit Date: 10/09/20 Discharge Date:10/11/20 Patient Name: Nela Barroso Visit Number: [id number] ATTENTION: The Clinical Documentation Specialists (CDI) and [facility] Coding Staff appreciate your assistance in clarifying documentation. Please respond to the clarification below the line at the bottom and electronically sign. The CDI & [facility] Coding staff will review the response and follow-up if needed. Please note: Queries are made part of the Legal Health Record. If you have any questions, please contact the author of this message via ITS. Dear Dr. Cloud The diagnosis pneumonia was documented in the cardiology notes and pulmonology notes, but is not noted in the discharges summary. History/Risk Factors: COPD exacerbation, possible Non-STEMI, acute hypoxic respiratory failure Clinical Indicators: Increasing wheezing, cough, yellow sputum, short of breath Vital signs: T. 99, P. 77, R. 24, BP 164/100 WBC/Left Shift: 14.7/79% X-ray: Right basilar opacity Lung/breathing assessment: Respiratory rate increased, diminished breath sounds, prolonged expiration and wheezing, accessory muscle working, not able to speak in full sentences Treatment: Antibiotics: IV Rocephin O2: 15 L/min on non-rebreather on admission then 4 L/min per Nasal Cannula Breathing Treatment: Ventolin and Duoneb inhalation tx Please clarify if the Pneumonia was Present/active this admission Treated and resolved this admission Ruled out Other, please specify Clinically unable to determine Right lower lobe pneumonia, POA MTDD
== END 2020-10-11 14:49 | disposition home or self-care (01) | DRG 190 ==
LOC: EC 03:02 → 6NMEDSUR 04:29 → 3SCARD 05:06
PROVIDERS: ADMIT Hospitalist; ATTEND Hospitalist
DX: J44.1 Chronic obstructive pulmonary disease with (acute) exacerbation (principal); I21.4 Non-ST elevation (NSTEMI) myocardial infarction; J96.01 Acute respiratory failure with hypoxia; J18.9 Pneumonia, unspecified organism; E78.5 Hyperlipidemia, unspecified; F17.210 Nicotine dependence, cigarettes, uncomplicated; F32.9 Major depressive disorder, single episode, unspecified; I10 Essential (primary) hypertension; I25.2 Old myocardial infarction; K21.9 Gastro-esophageal reflux disease without esophagitis; Z20.828 Contact with and (suspected) exposure to other viral communicable diseases; R07.89 Other chest pain; Z79.899 Other long term (current) drug therapy; Z88.1 Allergy status to other antibiotic agents; Z88.0 Allergy status to penicillin; Z88.7 Allergy status to serum and vaccine; Z88.8 Allergy status to other drugs, medicaments and biological substances; Z87.09 Personal history of other diseases of the respiratory system; Z98.42 Cataract extraction status, left eye; Z98.41 Cataract extraction status, right eye; Z90.2 Acquired absence of lung [part of]; Z98.890 Other specified postprocedural states; Z80.9 Family history of malignant neoplasm, unspecified; Z82.49 Family history of ischemic heart disease and other diseases of the circulatory system
CPT/HCPCS: 36415; 71045; 71046; 80053; 82553; 83605; 83735; 84484; 85025; 85610; 85730; 87040; 87502; 87635; 93005; 93306; 94640; 94760; 96365; 96366; 96367; 96375; 96376; 99291

== ENCOUNTER 2021-06-08 08:30 | Emergency (ER) | payer OTHER ==
[2021-06-08 08:35] VITALS: BP 96/62; PULSE 100; RESP 20; TEMP 97.5
[2021-06-08] MEDS ORDERED: HYDROmorphone 1 MG/ML 1 ML SYRINGE IM STA (08:46)
--- NOTE | 2021-06-08 08:56 | ED ---
General Adult HPI - General Chief complaint: Fall Stated complaint: Fall down the stairs Time Seen by Provider: 06/08/21 08:37 Source: patient, family, RN notes reviewed Mode of arrival: ambulatory Limitations: no limitations - History of Present Illness Initial comments: Patient is a pleasant 56-year-old female presenting to the emergency department following a fall. Incident occurred yesterday. Patient was walking down steps she missed a step and fell down 4 steps. Patient landed on her right buttocks. Patient has discomfort and swelling there since that time. Patient is ambulatory with pain. No weakness. No tendons retention of bowel or bladder. No history of trauma to this area previously. Discomfort is moderate to severe. - Related Data Home Medications Medication Instructions Recorded Confirmed HYDROcodone/APAP 10-325MG [[place] 1 tab PO BID PRN 09/11/16 06/08/21 10-325] Meclizine [Antivert] 12.5 mg PO TID PRN 09/11/16 06/08/21 Albuterol Nebulized [Ventolin 2.5 mg INHALATION RT-TID PRN 10/09/20 06/08/21 Nebulized] Atenolol [Tenormin] 50 mg PO DAILY 10/09/20 06/08/21 Atorvastatin Calcium [Lipitor] 20 mg PO DAILY 10/09/20 06/08/21 Famotidine 40 mg PO DAILY 10/09/20 06/08/21 Cholecalciferol [Vitamin D3 (25 50 mcg PO DAILY 06/08/21 06/08/21 Mcg = 1000 Iu)] Venlafaxine HCl ER [Effexor Xr] 150 mg PO DAILY 06/08/21 06/08/21 lisinopriL [Zestril] 5 mg PO DAILY 06/08/21 06/08/21 Previous Rx's Medication Instructions Recorded Aspirin 81 mg PO DAILY #30 chew 10/11/20 Cyclobenzaprine [Flexeril] 10 mg PO TID PRN #12 tablet 06/08/21 Allergies Allergy/AdvReac Type Severity Reaction Status Date / Time iron Allergy Unknown Unknown Verified 06/08/21 09:49 Childhood erythromycin base Allergy BREATHING Verified 06/08/21 09:49 DIFFICULTY. Penicillins Allergy Unknown Verified 06/08/21 09:49 Childhood pneumococcal vaccine Allergy Unknown Verified 06/08/21 09:49 [From Prevnar 13 (PF)] Review of Systems ROS Statement: Those systems with pertinent positive or pertinent negative responses have been documented in the HPI. ROS Other: All systems not noted in ROS Statement are negative. Constitutional: Denies: fever Eyes: Denies: eye pain ENT: Denies: ear pain Respiratory: Denies: cough Cardiovascular: Denies: chest pain Endocrine: Denies: fatigue Gastrointestinal: Denies: abdominal pain Genitourinary: Denies: dysuria Musculoskeletal: Reports: as per HPI. Denies: back pain Skin: Denies: rash Neurological: Denies: weakness Past Medical History Past Medical History: COPD, Eye Disorder, GERD/Reflux, Hypertension, Myocardial Infarction (PR) Additional Past Medical History / Comment(s): vertigo, irregular heartbeat, 5 collapsed lungs- 1/4 LEFT LUNG REMOVED, HERNIATED DISC WITH BACK PAIN, STATES SHE PICKS AT HER SKIN., BILAT CATARACTS-removed Last Myocardial Infarction Date:: 1996 History of Any Multi-Drug Resistant Organisms: None Reported Additional Past Surgical History / Comment(s): PARTIAL left lung removed, colonoscopy Past Anesthesia/Blood Transfusion Reactions: Motion Sickness Past Psychological History: Depression Smoking Status: Current every day smoker Past Alcohol Use History: Daily Past Drug Use History: Marijuana - Past Family History Mother Family Medical History: Cancer, Deep Vein Thrombosis (DVT) General Exam Limitations: no limitations General appearance: alert, in no apparent distress Head exam: Present: normocephalic Eye exam: Present: normal appearance Neck exam: Present: normal inspection. Absent: tenderness Respiratory exam: Present: normal lung sounds bilaterally Cardiovascular Exam: Present: regular rate, normal rhythm Expanded Peripheral pulses: 2+: Dorsalis Pedis (R), Dorsalis Pedis (L) GI/Abdominal exam: Present: soft. Absent: tenderness Extremities exam: Present: normal inspection Back exam: Present: tenderness (Moderate tenderness right sacral region with soft tissue swelling.) Neurological exam: Present: alert Psychiatric exam: Present: normal affect, normal mood Skin exam: Present: normal color Course Vital Signs 06/08/21 08:32 Temperature 97.5 F L Pulse Rate 100 Respiratory 20 Rate Blood Pressure 96/62 O2 Sat by Pulse 97 Oximetry Medical Decision Making - Medical Decision Making Patient reevaluated. Patient and family updated. - Radiology Data Radiology results: image reviewed (Sacral and pelvic x-rays show no fracture) Disposition Clinical Impression: Sacral contusion, Fall Disposition: HOME SELF-CARE Condition: Stable Instructions (If sedation given, give patient instructions): Back Pain (ED), Hematoma (ED), Contusion in Adults (ED) Additional Instructions: Prescription for muscle relaxer sent to your pharmacy. Please follow-up with primary care physician in the next couple days for recheck. Return for increased pain, swelling, loss of control of bowel or bladder, weakness, worsening symptoms or other concerns. Ice to affected area. Prescriptions: Cyclobenzaprine [Flexeril] 10 mg PO TID PRN #12 tablet PRN Reason: Pain Is patient prescribed a controlled substance at d/c from ED?: No Referrals: Gaurav Garcia MD [Primary Care Provider] - 1-2 days Time of Disposition: 10:11
--- NOTE | 2021-06-08 09:53 | XR ---
EXAMINATION TYPE: XR pelvis AP view DATE OF EXAM: 06/08/2021 CLINICAL HISTORY: pain TECHNIQUE: Single view the pelvis is submitted. Examination is limited by patient rotation. FINDINGS: No evidence for fracture, dislocation or bony lesion. Joint spaces are well-preserved. S I joints appear symmetric. IMPRESSION: 1. No acute fracture or dislocation seen. ICD 10 NO FRACTURE, INITIAL EVALUATION
--- NOTE | 2021-06-08 10:04 | XR ---
EXAMINATION TYPE: XR sacrum coccyx DATE OF EXAM: 06/08/2021 CLINICAL HISTORY: pain TECHNIQUE: Three views of the sacrum and coccyx are submitted. COMPARISON: None Sacral alae appear symmetric. No evidence for fracture or bony lesion. Sacroiliac joints are within normal limits. Visualized coccygeal segments are free of fracture or lesion. IMPRESSION: Normal study
== END 2021-06-08 10:31 | disposition home or self-care (01) ==
LOC: EC 08:30
DX: S30.0XXA Contusion of lower back and pelvis, initial encounter (principal); I10 Essential (primary) hypertension; I25.2 Old myocardial infarction; J44.9 Chronic obstructive pulmonary disease, unspecified; K21.9 Gastro-esophageal reflux disease without esophagitis; F32.9 Major depressive disorder, single episode, unspecified; F17.200 Nicotine dependence, unspecified, uncomplicated; F12.90 Cannabis use, unspecified, uncomplicated; Z79.82 Long term (current) use of aspirin; Z79.52 Long term (current) use of systemic steroids; Z79.891 Long term (current) use of opiate analgesic; Z79.899 Other long term (current) drug therapy; W10.9XXA Fall (on) (from) unspecified stairs and steps, initial encounter
CPT/HCPCS: 72170; 72220; 96372; 99284; J1170

== ENCOUNTER 2021-06-29 19:26 | Observation (INO) | payer OTHER ==
[2021-06-29] MEDS ORDERED: HYDROmorphone 1 MG/ML 1 ML SYRINGE IVP STA (21:19)
[2021-06-29] MEDS ORDERED: ONDANSETRON 4 MG/2 ML VIAL IVP STA (21:19)
[2021-06-29] MEDS ORDERED: SODIUM CHLORIDE 0.9% 1,000 ML IV STA (21:19)
[2021-06-29] MEDS ORDERED: diphenhydrAMINE 50 MG/ML 1 ML VIAL IVP STA (21:19)
--- NOTE | 2021-06-29 21:26 | ED ---
Abdominal Pain HPI - General Chief Complaint: Abdominal Pain Stated Complaint: ABD pain Time Seen by Provider: 06/29/21 21:07 Source: patient Mode of arrival: wheelchair Limitations: no limitations - History of Present Illness Initial Comments: 56-year-old female patient presents to the emergency department today for evaluation of severe right lower quadrant abdominal pain that started today. Patient states a couple of weeks ago she did have a fall landing on her buttocks. States she developed a significant area of swelling on the right buttock. States she has been having mild lower abdominal pain for the last few weeks but today the pain worsens significantly and is concentrated in the right lower quadrant. Denies any radiation of the pain through to her back. States she did have nausea and one episode of vomiting. Denies fever or chills. Denies taking anything for pain. Denies history of abdominal surgery. Denies any hematuria, dysuria, urinary frequency, urinary urgency. Patient denies any recent rash, cough, shortness of breath, chest pain, diarrhea, constipation, numbness, tingling, dizziness, weakness, headache, visual changes, or any other complaints. - Related Data Home Medications Medication Instructions Recorded Confirmed HYDROcodone/APAP 10-325MG [[place] 1 tab PO BID PRN 09/11/16 06/29/21 10-325] Meclizine [Antivert] 12.5 mg PO TID PRN 09/11/16 06/29/21 Albuterol Nebulized [Ventolin 2.5 mg INHALATION RT-TID PRN 10/09/20 06/29/21 Nebulized] Atenolol [Tenormin] 50 mg PO DAILY 10/09/20 06/29/21 Atorvastatin Calcium [Lipitor] 20 mg PO DAILY 10/09/20 06/29/21 Famotidine 40 mg PO DAILY 10/09/20 06/29/21 Cholecalciferol [Vitamin D3 (25 50 mcg PO DAILY 06/08/21 06/29/21 Mcg = 1000 Iu)] Venlafaxine HCl ER [Effexor Xr] 150 mg PO DAILY 06/08/21 06/29/21 lisinopriL [Zestril] 5 mg PO DAILY 06/08/21 06/29/21 Budesonide/Formoterol Fumarate 2 puff INHALATION RT-BID 06/29/21 06/29/21 [Symbicort 160-4.5 Mcg Inhaler] Cyclobenzaprine [Flexeril] 10 mg PO BID 06/29/21 06/29/21 Nicotine 21Mg/24Hr Patch [Habitrol] 1 patch TRANSDERM DAILY PRN 06/29/21 06/29/21 QUEtiapine [SEROquel] 25 mg PO BID 06/29/21 06/29/21 methylPREDNISolone Dose Pack See Taper PO DIRECTED 06/29/21 06/29/21 [Medrol Dose Pack] Previous Rx's Medication Instructions Recorded Aspirin 81 mg PO DAILY #30 chew 10/11/20 Allergies Allergy/AdvReac Type Severity Reaction Status Date / Time iron Allergy Unknown Unknown Verified 06/29/21 20: Childhood erythromycin base Allergy BREATHING Verified 06/29/21 20:21 DIFFICULTY. Penicillins Allergy Unknown Verified 06/29/21 20:21 Childhood pneumococcal vaccine Allergy Unknown Verified 06/29/21 20:21 [From Prevnar 13 (PF)] Review of Systems ROS Statement: Those systems with pertinent positive or pertinent negative responses have been documented in the HPI. ROS Other: All systems not noted in ROS Statement are negative. Past Medical History Past Medical History: COPD, Eye Disorder, GERD/Reflux, Hypertension, Myocardial Infarction ([place]) Additional Past Medical History / Comment(s): vertigo, irregular heartbeat, 5 collapsed lungs- 1/4 LEFT LUNG REMOVED, HERNIATED DISC WITH BACK PAIN, STATES SHE PICKS AT HER SKIN., BILAT CATARACTS-removed Last Myocardial Infarction Date:: 1996 History of Any Multi-Drug Resistant Organisms: None Reported Additional Past Surgical History / Comment(s): PARTIAL left lung removed, colonoscopy Past Anesthesia/Blood Transfusion Reactions: Motion Sickness Past Psychological History: Depression Smoking Status: Current every day smoker Past Alcohol Use History: Daily Past Drug Use History: Marijuana - Past Family History Mother Family Medical History: Cancer, Deep Vein Thrombosis (DVT) General Exam Limitations: no limitations General appearance: alert, in distress (related to pain), other (This is well developed, well nourished, adult female patient in distress related to pain. Vital signs upon presentation are temperature 98.1F, pulse 92, respirations 20, blood pressure 149/82, pulse ox 99% on room air.) Eye exam: Present: normal appearance, PERRL, EOMI. Absent: scleral icterus, conjunctival injection, periorbital swelling ENT exam: Present: normal exam, normal oropharynx, mucous membranes moist Respiratory exam: Present: normal lung sounds bilaterally. Absent: respiratory distress, wheezes, rales, rhonchi, stridor Cardiovascular Exam: Present: regular rate, normal rhythm, normal heart sounds. Absent: systolic murmur, diastolic murmur, rubs, gallop, clicks GI/Abdominal exam: Present: soft, tenderness (Right lower quadrant, right lower quadrant mass/firmness felt.), guarding, normal bowel sounds. Absent: distended, rebound, rigid Back exam: Present: other (Large hematoma to the right low back/upper buttock, tender to touch.) Neurological exam: Present: alert, oriented X3, CN II-XII intact Psychiatric exam: Present: normal affect, normal mood Skin exam: Present: warm, dry, intact, normal color. Absent: rash Course Vital Signs 06/29/21 06/29/21 06/29/21 20:21 21:43 22:17 Temperature 98.1 F Pulse Rate 92 73 79 Respiratory 20 16 16 Rate Blood Pressure 149/82 128/82 137/92 O2 Sat by Pulse 99 99 96 Oximetry 06/29/21 23:32 Temperature Pulse Rate 60 Respiratory 16 Rate Blood Pressure 111/84 O2 Sat by Pulse 98 Oximetry Medical Decision Making - Medical Decision Making 56 year-old female patient coming in for lower abdominal pain with right lower quadrant tenderness. Patient had a fall 20 days ago, landed on her buttocks. Was seen in ED had negative xrays and discharged with diagnosis of hematoma. Physical exam reveals significant hematoma to the right upper buttock. There was rounded/firm mass to the right lower quadrant that was tender, patient guarding. Labs reviewed and showed elevated wbc count at 13. CT abdomen and pelvis showed 11cm abdominal wall hematoma to the right lower quadrant and hematoma to the rig ht buttock as well. She is very uncomfortable, has increased pain with any type of movement or coughing. She will be admitted to the hospital for further evaluation by general surgery. She is agreeable this plan. Case discussed my attending Dr. Bautista. - Lab Data Result diagrams: 06/29/21 21:22 06/29/21 21:22 Lab Results 06/29/21 06/29/21 06/29/21 Range/Units 21:22 21:22 21:22 WBC 13.9 H (3.8-10.6) k/uL RBC 3.21 L (3.80-5.40) m/uL Hgb 11.4 (11.4-16.0) gm/dL Hct 34.7 (34.0-46.0) % MCV 108.2 H (80.0-100.0) fL MCH 35.7 H (25.0-35.0) pg MCHC 33.0 (31.0-37.0) g/dL RDW 14.4 (11.5-15.5) % Plt Count 370 (150-450) k/uL MPV 7.7 Neutrophils % 91 % Lymphocytes % 5 % Monocytes % 3 % Eosinophils % 1 % Basophils % 0 % Neutrophils # 12.7 H (1.3-7.7) k/uL Lymphocytes # 0.6 L (1.0-4.8) k/uL Monocytes # 0.5 (0-1.0) k/uL Eosinophils # 0.1 (0-0.7) k/uL Basophils # 0.0 (0-0.2) k/uL Macrocytosis Marked A Sodium 137 (137-145) mmol/L Potassium 4.4 (3.5-5.1) mmol/L Chloride 104 (98-107) mmol/L Carbon Dioxide 26 (22-30) mmol/L Anion Gap 7 mmol/L BUN 12 (7-17) mg/dL Creatinine 0.71 (0.52-1.04) mg/dL Est GFR (CKD-EPI)AfAm >90 (>60 ml/min/1.73 sqM) Est GFR (CKD-EPI)NonAf >90 (>60 ml/min/1.73 sqM) Glucose 118 H (74-99) mg/dL Plasma Lactic Acid Jason (0.7-2.0) mmol/L Calcium 9.7 (8.4-10.2) mg/dL Total Bilirubin 0.7 (0.2-1.3) mg/dL AST 24 (14-36) U/L ALT 14 (4-34) U/L Alkaline Phosphatase 51 (38-126) U/L Total Protein 6.9 (6.3-8.2) g/dL Albumin 4.3 (3.5-5.0) g/dL Lipase 68 (23-300) U/L Urine Color Light Yellow Urine Appearance Clear (Clear) Urine pH 7.0 (5.0-8.0) Ur Specific [place] 1.006 (1.001-1.035) Urine Protein Negative (Negative) Urine Glucose (UA) Negative (Negative) Urine Ketones Negative (Negative) Urine Blood Negative (Negative) Urine Nitrite Negative (Negative) Urine Bilirubin Negative (Negative) Urine Urobilinogen <2.0 (<2.0) mg/dL Ur Leukocyte Esterase Negative (Negative) 06/29/21 Range/Units 21:22 WBC (3.8-10.6) k/uL RBC (3.80-5.40) m/uL Hgb (11.4-16.0) gm/dL Hct (34.0-46.0) % MCV (80.0-100.0) fL MCH (25.0-35.0) pg MCHC (31.0-37.0) g/dL RDW (11.5-15.5) % Plt Count (150-450) k/uL MPV Neutrophils % % Lymphocytes % % Monocytes % % Eosinophils % % Basophils % % Neutrophils # (1.3-7.7) k/uL Lymphocytes # (1.0-4.8) k/uL Monocytes # (0-1.0) k/uL Eosinophils # (0-0.7) k/uL Basophils # (0-0.2) k/uL Macrocytosis Sodium (137-145) mmol/L Potassium (3.5-5.1) mmol/L Chloride (98-107) mmol/L Carbon Dioxide (22-30) mmol/L Anion Gap mmol/L BUN (7-17) mg/dL Creatinine (0.52-1.04) mg/dL Est GFR (CKD-EPI)AfAm (>60 ml/min/1.73 sqM) Est GFR (CKD-EPI)NonAf (>60 ml/min/1.73 sqM) Glucose (74-99) mg/dL Plasma Lactic Acid Jason 1.5 (0.7-2.0) mmol/L Calcium (8.4-10.2) mg/dL Total Bilirubin (0.2-1.3) mg/dL AST (14-36) U/L ALT (4-34) U/L Alkaline Phosphatase (38-126) U/L Total Protein (6.3-8.2) g/dL Albumin (3.5-5.0) g/dL Lipase (23-300) U/L Urine Color Urine Appearance (Clear) Urine pH (5.0-8.0) Ur Specific [place] (1.001-1.035) Urine Protein (Negative) Urine Glucose (UA) (Negative) Urine Ketones (Negative) Urine Blood (Negative) Urine Nitrite (Negative) Urine Bilirubin (Negative) Urine Urobilinogen (<2.0) mg/dL Ur Leukocyte Esterase (Negative) - Radiology Data Radiology results: report reviewed, image reviewed CT abdomen and pelvis is obtained. Report was reviewed in its entirety. Impression by Dr. Dia shows anterior right abdominal wall hematoma. Posterior subcutaneous pelvic hematoma. Mild left-sided hydronephrosis but no evidence of obstruction. Normal renal function. Disposition Clinical Impression: Abdominal wall hematoma, Traumatic hematoma of buttock Disposition: ADMITTED IP TO THIS [facility] Condition: Serious Decision to Admit Reason: Admit from EC Decision Date: 06/29/21 Decision Time: 23:32
[2021-06-29 21:40] LABS: Basophils % (A) 0 %; Eosinophils # (A) 0.1 k/uL (0-0.7); Eosinophils % (A) 1 %; HCT 34.7 % (34.0-46.0); HGB 11.4 gm/dL (11.4-16.0); Lymphocytes # (A) 0.6 k/uL (1.0-4.8); Lymphocytes % (A) 5 %; MCH 35.7 pg (25.0-35.0); Macrocytosis Marked; Mean Platelet Volume 7.7; Monocytes # (A) 0.5 k/uL (0-1.0); Monocytes % (A) 3 %; Neutrophils # (A) 12.7 k/uL (1.3-7.7); Neutrophils % (A) 91 %; Platelet Count 370 k/uL (150-450); RBC 3.21 m/uL (3.80-5.40); RDW 14.4 % (11.5-15.5); WBC 13.9 k/uL (3.8-10.6)
[2021-06-29 21:44] VITALS: RESP 16
[2021-06-29 21:44] LABS: MCV 108.2 fL (80.0-100.0)
[2021-06-29 21:50] LABS: Appearance,Urine Clear (Clear); Bilirubin,Urine Negative (Negative); Blood,Urine Negative (Negative); Color,Urine Light Yellow; Glucose,Urine (UA) Negative (Negative); Ketones,Urine Negative (Negative); Leukocyte Esterase,Urine Negative (Negative); Nitrite,Urine Negative (Negative); Protein,Urine Negative (Negative); Specific Gravity,Urine 1.006 (1.001-1.035); Urobilinogen,Urine <2.0 mg/dL (<2.0)
[2021-06-29 21:53] LABS: ALT 14 U/L (4-34); AST 24 U/L (14-36); African American GFR (CKD) >90 (>60 ml/min/1.73 sqM); Albumin 4.3 g/dL (3.5-5.0); Alkaline Phosphatase 51 U/L (38-126); Anion Gap 7 mmol/L; Blood Urea Nitrogen 12 mg/dL (7-17); Calcium 9.7 mg/dL (8.4-10.2); Carbon Dioxide 26 mmol/L (22-30); Chloride 104 mmol/L (98-107); Glucose 118 mg/dL (74-99); Lipase 68 U/L (23-300); Non-African American GFR(CKD) >90 (>60 ml/min/1.73 sqM); Potassium 4.4 mmol/L (3.5-5.1); Sodium 137 mmol/L (137-145); Total Bilirubin 0.7 mg/dL (0.2-1.3); Total Protein 6.9 g/dL (6.3-8.2)
--- NOTE | 2021-06-29 22:49 | CT ---
EXAMINATION TYPE: CT abdomen pelvis w con DATE OF EXAM: 06/29/2021 COMPARISON: None HISTORY: lump on posterior abd from fall, burning pain CT DLP: 650.3 mGycm Automated exposure control for dose reduction was used. CONTRAST: Performed with IV Contrast, patient injected with 100 mL of Isovue 300. Images obtained from the diaphragm to the floor the pelvis with IV contrast. Lung bases are clear. There is no pleural effusion. Heart is normal. There is no pericardial effusion. Liver spleen stomach pancreas gallbladder appear normal. The bile ducts are not dilated. There is no adrenal mass. Kidneys have normal size. There is mild left-sided hydronephrosis. There is normal tristin l function however. The delayed images show normal renal excretion. I see no definite hydroureter. Bl adder distends smoothly. There is no evidence of a ureteral calculus. Right kidney appears normal. Th ere is no retroperitoneal adenopathy. Appendix appears normal. There is 6 cm thick high density mass involving the right anterior abdominal wall consistent with abdominal wall hematoma. This extends to the right pubic bone. There is superior extension to the mid abdomen. The width is 11 cm. There is no mesenteric edema. There is no ascites or free air. There is no bowel obstruction. Appendi x appears normal. There is increased density in the subcutaneous fat over the right posterior pelvis consistent with he matoma. This measures 12 x 5 cm. The lumbar vertebra have normal alignment. There is no compression fracture. There is vacuum disc at L5-S1. The sacrum and coccyx appear intact the bony pelvis is intact. Hip joints are intact. IMPRESSION: Anterior right abdominal wall hematoma. Posterior subcutaneous pelvic hematoma. Mild left side hydronephrosis but no evidence of obstruction. Normal renal function.
[2021-06-29] MEDS ORDERED: ONDANSETRON 4 MG/2 ML VIAL IVP PRN (23:30)
[2021-06-29] MEDS ORDERED: NALOXONE 0.4 MG/ML 1 ML VIAL IV PRN (23:30)
[2021-06-30] MEDS: HYDROmorphone 1 MG/ML 1 ML SYRINGE IVP PRN ×2 (00:40→08:54)
[2021-06-30] MEDS: SODIUM CHLORIDE 0.9% 1,000 ML IV SCH ×2 (00:41→08:57)
--- NOTE | 2021-06-30 01:03 | P.HPIM ---
History of Present Illness H&P Date: 06/29/21 The patient is a 56-year-old female with a PMH of COPD, hypertension, coronary artery disease status post [place] who presented to the emergency room with complaints of abdominal pain. The patient reports that she had a fall 2 weeks ago when she slipped on stairs and fell onto her buttocks. She initially developed significant right buttock swelling and bruising which had been gradually improving over the past few days. She also reported that she developed right lower quadrant abdominal pain over the past 1 week, which gradually worsened, now 7/10, worsened with any motion, w/ no clear alleviating features. She denied nausea, vomiting, diarrhea. Also denied chest pain, shortness of breath, fever, dysuria. Denied weakness, numbness, visual disturbances, tingling. In the emergency room, CT abdomen and pelvis with contrast revealed an anterior right abdominal wall hematoma with a posterior subcutaneous pelvic hematoma along with mild left-sided hydronephrosis. Laboratory evaluation was remarkable for WBC count of 13.9 and hemoglobin of 11.4. Review of systems: Pertinent positives and negatives as discussed in HPI, a complete review of systems was performed and all other systems are negative. Physical examination: General: non toxic, no distress, appears at stated age, normal weight Derm: warm, dry Head: atraumatic, normocephalic, symmetric Eyes: EOMI, no lid lag, anicteric sclera, pupils equal round reactive to light ENT: Nose and ears atraumatic, no thrush, no pharyngeal erythema Neck: No thyromegaly, no cervical lymphadenopathy, trachea midline, supple Mouth: no lip lesion, mucus membranes moist Cardiovascular: S1S2 reg, no murmur, positive posterior tibial pulse bilateral, no edema, capillary refill less than 2 seconds Lungs: CTA bilateral, no rhonchi, no rales , no accessory muscle use Abdominal: Right lower quadrant tenderness with palpable mass with some guard ing, normal bowel sounds Ext: Right gluteal ecchymosis with large area of swelling, no gross muscle atrophy, muscle strength 5 out of 5 in all 4 extremities grossly, no contractures, Neuro: CN II-XI grossly intact, light touch intact all 4 extremities, finger to nose within normal limits, Psych: Alert, oriented, appropriate affect Assessment/plan Abdominal wall and gluteal hematoma -Surgery consulted -Hold home aspirin at this time -Pain control Macrocytosis -Check B12 and folate levels Leukocytosis -Likely due to acute stressor -No signs of active infection at this time -Monitor for now Chronic conditions: COPD, hypertension, hyperlipidemia, tobacco abuse -Continue with home medications DVT prophylaxis -IPCDs The patient is admitted with an anticipated less than 2 midnight stay for evaluation of hematomas. CODE STATUS:Full Code Discussed with: Patient Anticipated discharge date: in am Anticipated discharge place: Home Past Medical History Past Medical History: COPD, Eye Disorder, GERD/Reflux, Hypertension, Myocardial Infarction ([place]) Additional Past Medical History / Comment(s): vertigo, irregular heartbeat, 5 collapsed lungs- 1/4 LEFT LUNG REMOVED, HERNIATED DISC WITH BACK PAIN, STATES SHE PICKS AT HER SKIN., BILAT CATARACTS-removed Last Myocardial Infarction Date:: 1996 History of Any Multi-Drug Resistant Organisms: None Reported Additional Past Surgical History / Comment(s): PARTIAL left lung removed, colonoscopy Past Anesthesia/Blood Transfusion Reactions: Motion Sickness Past Psychological History: Depression Smoking Status: Current every day smoker Past Alcohol Use History: Daily Past Drug Use History: Marijuana - Past Family History Mother Family Medical History: Cancer, Deep Vein Thrombosis (DVT) Medications and Allergies Home Medications Medication Instructions Recorded Confirmed Type HYDROcodone/APAP 10-325MG [[place] 1 tab PO BID PRN 09/11/16 06/29/21 History 10-325] Meclizine [Antivert] 12.5 mg PO TID PRN 09/11/16 06/29/21 History Albuterol Nebulized [Ventolin 2.5 mg INHALATION RT-TID PRN 10/09/20 06/29/21 History Nebulized] Atenolol [Tenormin] 50 mg PO DAILY 10/09/20 06/29/21 History Atorvastatin Calcium [Lipitor] 20 mg PO DAILY 10/09/20 06/29/21 History Famotidine 40 mg PO DAILY 10/09/20 06/29/21 History Aspirin 81 mg PO DAILY #30 chew 10/11/20 06/29/21 Rx Cholecalciferol [Vitamin D3 (25 50 mcg PO DAILY 06/08/21 06/29/21 History Mcg = 1000 Iu)] Venlafaxine HCl ER [Effexor Xr] 150 mg PO DAILY 06/08/21 06/29/21 History lisinopriL [Zestril] 5 mg PO DAILY 06/08/21 06/29/21 History Budesonide/Formoterol Fumarate 2 puff INHALATION RT-BID 06/29/21 06/29/21 History [Symbicort 160-4.5 Mcg Inhaler] Cyclobenzaprine [Flexeril] 10 mg PO BID 06/29/21 06/29/21 History Nicotine 21Mg/24Hr Patch [Habitrol] 1 patch TRANSDERM DAILY PRN 06/29/21 06/29/21 History QUEtiapine [SEROquel] 25 mg PO BID 06/29/21 06/29/21 History methylPREDNISolone Dose Pack See Taper PO DIRECTED 06/29/21 06/29/21 History [Medrol Dose Pack] Allergies Allergy/AdvReac Type Severity Reaction Status Date / Time iron Allergy Unknown Unknown Verified 06/29/21 20:21 Childhood erythromycin base Allergy BREATHING Verified 06/29/21 20:21 DIFFICULTY. Penicillins Allergy Unknown Verified 06/29/21 20:21 Childhood pneumococcal vaccine Allergy Unknown Verified 06/29/21 20:21 [From Prevnar 13 (PF)] Physical Exam Vitals: Vital Signs Temp Pulse Resp BP Pulse Ox 06/29/21 23:32 60 16 111/84 98 06/29/21 22:17 79 16 137/92 96 06/29/21 21:43 73 16 128/82 99 06/29/21 20:21 98.1 F 92 20 149/82 99 Intake and Output 06/29/21 06/29/21 06/30/21 14:59 22:59 06:59 Other: Weight 65.771 kg Results CBC & Chem 7: 06/29/21 21:22 06/29/21 21:22 Labs: Abnormal Lab Results - Last 24 Hours (Table) 06/29/21 06/29/21 Range/Units 21:22 21:22 WBC 13.9 H (3.8-10.6) k/uL RBC 3.21 L (3.80-5.40) m/uL MCV 108.2 H (80.0-100.0) fL MCH 35.7 H (25.0-35.0) pg Neutrophils # 12.7 H (1.3-7.7) k/uL Lymphocytes # 0.6 L (1.0-4.8) k/uL Macrocytosis Marked A Glucose 118 H (74-99) mg/dL
[2021-06-30] MEDS ORDERED: MECLIZINE 12.5 MG TAB PO PRN (01:04)
[2021-06-30] MEDS ORDERED: HYDROcodone/APAP 10-325MG 1 EACH TAB PO PRN (01:04)
[2021-06-30] MEDS ORDERED: ALBUTEROL NEBULIZED 2.5 MG/3 ML INHALATION PRN (01:04)
[2021-06-30] MEDS ORDERED: SYMBICORT 160-4.5 MCG INHALER INHALATION SCH (08:00)
[2021-06-30] MEDS ORDERED: QUEtiapine 25 MG TAB PO SCH (09:00)
[2021-06-30] MEDS ORDERED: CYCLOBENZAPRINE 10 MG TAB PO SCH (09:00)
[2021-06-30] MEDS ORDERED: atenoloL 50 MG TAB PO SCH (09:00)
[2021-06-30] MEDS ORDERED: ATORVASTATIN 20 MG TAB PO SCH (09:00)
[2021-06-30] MEDS ORDERED: VENLAFAXINE HCL ER 150 MG CAP PO SCH (09:00)
[2021-06-30] MEDS ORDERED: lisinopriL 5 MG TAB PO SCH (09:00)
[2021-06-30 09:24] LABS: HCT 25.7 % (37.2-46.3); HGB 8.2 g/dL (12.0-15.0); MCH 35.2 pg (27.0-32.0); MCHC 31.9 g/dL (32.0-37.0); MCV 110.3 fL (80.0-97.0); Platelet Count 263 X 10*3/uL (140-440); RBC 2.33 X 10*6/uL (4.10-5.20); WBC 10.75 X 10*3/uL (4.50-10.00)
[2021-06-30 10:57] LABS: African American GFR (CKD) 118.9 (60.0-200.0); Anion Gap 1.8 mmol/L (4.00-12.00); BUN/Creat Ratio 16.67 Ratio (12.00-20.00); Calcium 7.7 mg/dL (8.7-10.3); Carbon Dioxide 26.2 mmol/L (21.6-31.8); Non-African American GFR(CKD) 102.6 (60.0-200.0); Potassium 4.1 mmol/L (3.5-5.5)
[2021-06-30 12:29] VITALS: BP 117/57; PULSE 61; TEMP 97.9
--- NOTE | 2021-06-30 14:44 | P.PN ---
Subjective Progress Note Date: 06/30/21 Patient was seen and evaluated by me today. She was complaining of pain mostly in the lower abdomen and lower back area. She has some bruising in the right side of her lower back and upper right buttock. Objective - Vital Signs Vital signs: Vital Signs Temp 97.9 F 06/30/21 12:28 Pulse 61 06/30/21 12:28 Resp 16 06/30/21 12:28 BP 117/57 06/30/21 12:28 Pulse Ox 96 06/30/21 12:28 Intake & Output 06/29/21 06/30/21 06/30/21 18:59 06:59 18:59 Weight 65.771 kg - Exam General: The patient is awake and alert, in no distress Eye: there is normal conjunctiva bilaterally. Neck: The neck is supple, there is no JVD. Cardiovascular: Normal S1-S2, no S3-S4, no murmurs. Respiratory: Lungs clear to auscultation bilaterally Gastrointestinal: Abdomen is soft, nontender Musculoskeletal: There is no pedal edema. Neurological:. Speech is normal. Skin: Skin is warm and dry - Labs CBC & Chem 7: 06/30/21 04:46 06/30/21 04:46 Labs: Abnormal Lab Results - Last 24 Hours (Table) 06/29/21 06/29/21 06/30/21 Range/Units 21:22 21:22 04:46 WBC 13.9 H 10.75 H (3.8-10.6) k/uL RBC 3.21 L 2.33 L (3.80-5.40) m/uL Hgb 8.2 L (12.0-15.0) g/dL Hct 25.7 L (37.2-46.3) % MCV 108.2 H 110.3 H (80.0-100.0) fL MCH 35.7 H 35.2 H (25.0-35.0) pg MCHC 31.9 L (32.0-37.0) g/dL RDW 16.0 H (11.5-14.5) % Neutrophils # 12.7 H (1.3-7.7) k/uL Lymphocytes # 0.6 L (1.0-4.8) k/uL Macrocytosis Marked A Chloride (96-109) mmol/L Anion Gap (4.00-12.00) mmol/L Glucose 118 H (74-99) mg/dL Calcium (8.7-10.3) mg/dL 06/30/21 Range/Units 04:46 WBC (3.8-10.6) k/uL RBC (3.80-5.40) m/uL Hgb (12.0-15.0) g/dL Hct (37.2-46.3) % MCV (80.0-100.0) fL MCH (25.0-35.0) pg MCHC (32.0-37.0) g/dL RDW (11.5-14.5) % Neutrophils # (1.3-7.7) k/uL Lymphocytes # (1.0-4.8) k/uL Macrocytosis Chloride 112 H (96-109) mmol/L Anion Gap 1.80 L (4.00-12.00) mmol/L Glucose (74-99) mg/dL Calcium 7.7 L (8.7-10.3) mg/dL Assessment and Plan Assessment: This is a 56-year-old female with past medical history noted below who presented to the emergency room with abdominal pain after sustaining a fall at home. Patient was evaluated in the ER and admitted to the hospital for further ma nagement of her medical problems noted below. 1. Anterior right abdominal wall hematoma and posterior subcutaneous pelvic hematoma 2. Acute blood loss anemia 3. Abdominal pain 4. Chronic medical problems: Underlying COPD without exacerbation, hypertension, coronary artery disease Patient was seen and evaluated by general surgery. Abdominal binder recommended. Plan to repeat hemoglobin in the morning. Transfuse as needed for hemoglobin less than 8. Continue monitoring clinical status otherwise.
--- NOTE | 2021-06-30 14:45 | P.DS ---
Providers Date of admission: 06/29/21 23:32 Expected date of discharge: 06/30/21 Attending physician: Joy Carrion MD Consults: 06/29/21 23:30 Consult Physician Routine Consulting Provider: Sneha Ramsay Consult Reason/Comments: Abdominal wall hematoma; right buttock hematoma Do you want consulting provider notified?: Yes Primary care physician: Gaurav Garcia MD Hospital Course: Patient left the hospital AGAINST MEDICAL ADVICE. She verbalized understanding of the risks. For further details about this hospitalization please refer to my progress note dated today. Patient Condition at Discharge: Serious Plan - Discharge Summary Discharge Rx Participant: No New Discharge Prescriptions: No Action Meclizine [Antivert] 12.5 mg PO TID PRN PRN Reason: vertigo HYDROcodone/APAP 10-325MG [[place] 10-325] 1 tab PO BID PRN PRN Reason: Pain Famotidine 40 mg PO DAILY Atorvastatin Calcium [Lipitor] 20 mg PO DAILY Atenolol [Tenormin] 50 mg PO DAILY Albuterol Nebulized [Ventolin Nebulized] 2.5 mg INHALATION RT-TID PRN PRN Reason: Shortness Of Breath Aspirin 81 mg PO DAILY #30 chew lisinopriL [Zestril] 5 mg PO DAILY Cholecalciferol [Vitamin D3 (25 Mcg = 1000 Iu)] 50 mcg PO DAILY Nicotine 21Mg/24Hr Patch [Habitrol] 1 patch TRANSDERM DAILY PRN PRN Reason: Nicotine Cravings Venlafaxine HCl ER [Effexor Xr] 150 mg PO DAILY methylPREDNISolone Dose Pack [Medrol Dose Pack] See Taper PO DIRECTED QUEtiapine [SEROquel] 25 mg PO BID Budesonide/Formoterol Fumarate [Symbicort 160-4.5 Mcg Inhaler] 2 puff INHALATION RT-BID Cyclobenzaprine [Flexeril] 10 mg PO BID Discharge Medication List HYDROcodone/APAP 10-325MG [[place] 10-325] 1 tab PO BID PRN 09/11/16 [History] Meclizine [Antivert] 12.5 mg PO TID PRN 09/11/16 [History] Albuterol Nebulized [Ventolin Nebulized] 2.5 mg INHALATION RT-TID PRN 10/09/20 [History] Atenolol [Tenormin] 50 mg PO DAILY 10/09/20 [History] Atorvastatin Calcium [Lipitor] 20 mg PO DAILY 10/09/20 [History] Famotidine 40 mg PO DAILY 10/09/20 [History] Aspirin 81 mg PO DAILY #30 chew 10/11/20 [Rx] Cholecalciferol [Vitamin D3 (25 Mcg = 1000 Iu)] 50 mcg PO DAILY 06/08/21 [History] Venlafaxine HCl ER [Effexor Xr] 150 mg PO DAILY 06/08/21 [History] lisinopriL [Zestril] 5 mg PO DAILY 06/08/21 [History] Budesonide/Formoterol Fumarate [Symbicort 160-4.5 Mcg Inhaler] 2 puff INHALATION RT-BID 06/29/21 [History] Cyclobenzaprine [Flexeril] 10 mg PO BID 06/29/21 [History] Nicotine 21Mg/24Hr Patch [Habitrol] 1 patch TRANSDERM DAILY PRN 06/29/21 [History] QUEtiapine [SEROquel] 25 mg PO BID 06/29/21 [History] methylPREDNISolone Dose Pack [Medrol Dose Pack] See Taper PO DIRECTED 06/29/21 [History] Follow up Appointment(s)/Referral(s): Gaurav Garcia MD [Primary Care Provider] - 1-2 days
--- NOTE | 2021-06-30 15:10 | P.GSCN ---
History of Present Illness Consult date: 06/30/21 History of present illness: CHIEF COMPLAINT: Abdominal pain HISTORY OF PRESENT ILLNESS: This is a 56-year-old female with a known history of COPD, hypertension coronary artery disease, myocardial infarction, nicotine dependence and partial left lung lobectomy. Patient presents to the hospital with complaints of abdominal pain and swelling on her right thorax with br uising. Patient reports falling about 2 weeks ago. Patient landed on her buttocks on steps that had a model strip. Patient does take aspirin daily. She denies any other blood thinners. Patient has had increased swelling in the right buttocks. She's also complaining of mid lower abdominal pain that has increased. Patient denies any nausea or vomiting. Denies any difficulty with bowel movements or urinating. She had computed tomography scan abdomen and pelvis completed that showed an anterior right abdominal wall hematoma. Posterior subcutaneous pelvic hematoma. Mild left-sided hydronephrosis but no evidence of obstruction. Normal renal function. Patient did have a drop in her hemoglobin from 11.4 down to 8.2. She reports ambulating without difficulty. Surgical service has been consult in regards to her abdominal wall and right buttocks hematoma. PAST MEDICAL HISTORY: See list. PAST SURGICAL HISTORY: See list. MEDICATIONS: See list. ALLERGIES: See list. SOCIAL HISTORY: No illicit drug use. REVIEW OF SYSTEMS: CONSTITUTIONAL: Denies fever or chills. HEENT: Denies blurred vision, vision changes, or eye pain. Denies hemoptysis ENDOCRINE: Denies heat or cold intolerance. CARDIOVASCULAR: Denies chest pain or pressure. RESPIRATORY: No shortness of breath. GASTROINTESTINAL: Denies abdominal pain. Denies nausea or vomiting. NEURO: Denies history of seizures. PSYCH: No depression or suicidal ideation HEMATOLOGIC: Denies bleeding disorders. LYMPHATIC: The patient denies any lumps and bumps around the neck. GENITOURINARY: Denies any blood in urine or increased urinary frequency. MUSCULOSKELETAL: Denies myalgias. Denies joint swelling. Denies decreased range of motion beyond patients baseline. SKIN: Denies pruitis. Denies rash. PHYSICAL EXAM: VITAL SIGNS: Reviewed GENERAL: Well-developed in no acute distress. HEENT: No sclera icterus. Extraocular movements grossly intact. Moist buccal mucosa. Head is atraumatic, normocephalic. Hears conversational speech. No nasal drainage. NECK: Supple without lymphadenopathy. CHEST: Non-labored respirations and equal bilateral excursions. CARDIOVASCULAR: Palpable 2+ radial pulses. ABDOMEN: Soft. Nondistended. Tenderness with palpation and the lower abdomen and suprapubic area. Patient does have some bruising in the suprapubic area. Patient has significant swelling and bruising noted on the right buttocks. There is bruising along the sacrum. MUSCULOSKELETAL: No clubbing or cyanosis. NEUROLOGIC: No focal or lateralizing signs. Cranial nerves II through XII grossly intact. PSYCH: Appropriate affect. Alert and oriented to person, place and time. SKIN: Well perfused. Good skin turgor. LABORATORY DATA: WBC 13.9 down to 10.75 hemoglobin dropped from 11.4 down to 8.2 platelets are 263 creatinine 0.6 Urinalysis negative LFTs normal IMAGING: computed tomography scan abdomen and pelvis completed that showed an anterior right abdominal wall hematoma. Posterior subcutaneous pelvic hematoma. Mild left-sided hydronephrosis but no evidence of obstruction. Normal renal function ASSESSMENT: 1. Right anterior abdominal wall hematoma, Posterior subcutaneous pelvic hematoma and right buttocks hematoma secondary to fall 2. History of [place] and coronary artery disease on a daily aspirin at home 3. Nicotine dependence 4. History of COPD PLAN: -No surgical intervention planned -Recommend conservative management -Abdominal binder ordered -Continue ice packs as needed -Repeat hemoglobin in a.m. -Hold aspirin -Patient also educated to hold on taking her vitamins. Such as her vitamin D due to increased bleeding risk -Patient wanted to be discharged today. Patient has been educated on the importance of being monitored until tomorrow due to risks of bleeding. Patient apparently is deciding to leave AGAINST MEDICAL ADVICE. Physician Art Professor note has been reviewed by physician. Signing provider agrees with the documented findings, assessment, and plan of care. Past Medical History Past Medical History: COPD, Eye Disorder, GERD/Reflux, Hypertension, Myocardial Infarction ([place]) Additional Past Medical History / Comment(s): vertigo, irregular heartbeat, 5 collapsed lungs- 1/4 LEFT LUNG REMOVED, HERNIATED DISC WITH BACK PAIN, STATES SHE PICKS AT HER SKIN., BILAT CATARACTS-removed Last Myocardial Infarction Date:: 1996 History of Any Multi-Drug Resistant Organisms: None Reported Additional Past Surgical History / Comment(s): PARTIAL left lung removed, colonoscopy, cataracts Past Anesthesia/Blood Transfusion Reactions: Motion Sickness Past Psychological History: Depression Smoking Status: Current every day smoker Past Alcohol Use History: Daily Additional Past Alcohol Use History / Comment(s): SMOKES APPROX 1PPD. SMOKING FOR 28 YEARS. USUALLY DRINKS 1 12 OZ CAN OF BEER DAILY. Past Drug Use History: Marijuana Additional Drug Use History / Comment(s): HAD A FEW PUFFS A FEW WEEKS AGO - Past Family History Mother Family Medical History: Cancer, Deep Vein Thrombosis (DVT) Medications and Allergies Home Medications Medication Instructions Recorded Confirmed Type HYDROcodone/APAP 10-325MG [[place] 1 tab PO BID PRN 09/11/16 06/29/21 History 10-325] Meclizine [Antivert] 12.5 mg PO TID PRN 09/11/16 06/29/21 History Albuterol Nebulized [Ventolin 2.5 mg INHALATION RT-TID PRN 10/09/20 06/29/21 History Nebulized] Atenolol [Tenormin] 50 mg PO DAILY 10/09/20 06/29/21 History Atorvastatin Calcium [Lipitor] 20 mg PO DAILY 10/09/20 06/29/21 History Famotidine 40 mg PO DAILY 10/09/20 06/29/21 History Aspirin 81 mg PO DAILY #30 chew 10/11/20 06/29/21 Rx Cholecalciferol [Vitamin D3 (25 50 mcg PO DAILY 06/08/21 06/29/21 History Mcg = 1000 Iu)] Venlafaxine HCl ER [Effexor Xr] 150 mg PO DAILY 06/08/21 06/29/21 History lisinopriL [Zestril] 5 mg PO DAILY 06/08/21 06/29/21 History Budesonide/Formoterol Fumarate 2 puff INHALATION RT-BID 06/29/21 06/29/21 History [Symbicort 160-4.5 Mcg Inhaler] Cyclobenzaprine [Flexeril] 10 mg PO BID 06/29/21 06/29/21 History Nicotine 21Mg/24Hr Patch [Habitrol] 1 patch TRANSDERM DAILY PRN 06/29/21 06/29/21 History QUEtiapine [SEROquel] 25 mg PO BID 06/29/21 06/29/21 History methylPREDNISolone Dose Pack See Taper PO DIRECTED 06/29/21 06/29/21 History [Medrol Dose Pack] Allergies Allergy/AdvReac Type Severity Reaction Status Date / Time iron Allergy Unknown Unknown Verified 06/29/21 20:21 Childhood erythromycin base Allergy BREATHING Verified 06/29/21 20:21 DIFFICULTY. Penicillins Allergy Unknown Verified 06/29/21 20:21 Childhood pneumococcal vaccine Allergy Unknown Verified 06/29/21 20:21 [From [place] 13 (PF)] Surgical - Exam Vital Signs Temp Pulse Resp BP Pulse Ox 98.1 F 92 20 149/82 99 06/29/21 20:21 06/29/21 20:21 06/29/21 20:21 06/29/21 20:21 06/29/21 20:21 Results - Labs 06/30/21 04:46 06/30/21 04:46 Abnormal Lab Results - Last 24 Hours (Table) 06/29/21 06/29/21 06/30/21 Range/Units 21:22 21:22 04:46 WBC 13.9 H 10.75 H (3.8-10.6) k/uL RBC 3.21 L 2.33 L (3.80-5.40) m/uL Hgb 8.2 L (12.0-15.0) g/dL Hct 25.7 L (37.2-46.3) % MCV 108.2 H 110.3 H (80.0-100.0) fL MCH 35.7 H 35.2 H (25.0-35.0) pg MCHC 31.9 L (32.0-37.0) g/dL RDW 16.0 H (11.5-14.5) % Neutrophils # 12.7 H (1.3-7.7) k/uL Lymphocytes # 0.6 L (1.0-4.8) k/uL Macrocytosis Marked A Chloride (96-109) mmol/L Anion Gap (4.00-12.00) mmol/L Glucose 118 H (74-99) mg/dL Calcium (8.7-10.3) mg/dL 06/30/21 Range/Units 04:46 WBC (3.8-10.6) k/uL RBC (3.80-5.40) m/uL Hgb (12.0-15.0) g/dL Hct (37.2-46.3) % MCV (80.0-100.0) fL MCH (25.0-35.0) pg MCHC (32.0-37.0) g/dL RDW (11.5-14.5) % Neutrophils # (1.3-7.7) k/uL Lymphocytes # (1.0-4.8) k/uL Macrocytosis Chloride 112 H (96-109) mmol/L Anion Gap 1.80 L (4.00-12.00) mmol/L Glucose (74-99) mg/dL Calcium 7.7 L (8.7-10.3) mg/dL Diabetes panel 06/29/21 06/30/21 Range/Units 21:22 04:46 Sodium 137 140 (137-145) mmol/L Potassium 4.4 4.1 (3.5-5.1) mmol/L Chloride 104 112 H (98-107) mmol/L Carbon Dioxide 26 26.2 (22-30) mmol/L BUN 12 10.0 (7-17) mg/dL Creatinine 0.71 0.6 (0.52-1.04) mg/dL Glucose 118 H 93 (74-99) mg/dL Calcium 9.7 7.7 L (8.4-10.2) mg/dL AST 24 (14-36) U/L ALT 14 (4-34) U/L Alkaline Phosphatase 51 (38-126) U/L Total Protein 6.9 (6.3-8.2) g/dL Albumin 4.3 (3.5-5.0) g/dL Calcium panel 06/29/21 06/30/21 Range/Units 21:22 04:46 Calcium 9.7 7.7 L (8.4-10.2) mg/dL Albumin 4.3 (3.5-5.0) g/dL Pituitary panel 06/29/21 06/30/21 Range/Units 21:22 04:46 Sodium 137 140 (137-145) mmol/L Potassium 4.4 4.1 (3.5-5.1) mmol/L Chloride 104 112 H (98-107) mmol/L Carbon Dioxide 26 26.2 (22-30) mmol/L BUN 12 10.0 (7-17) mg/dL Creatinine 0.71 0.6 (0.52-1.04) mg/dL Glucose 118 H 93 (74-99) mg/dL Calcium 9.7 7.7 L (8.4-10.2) mg/dL Adrenal panel 06/29/21 06/30/21 Range/Units 21:22 04:46 Sodium 137 140 (137-145) mmol/L Potassium 4.4 4.1 (3.5-5.1) mmol/L Chloride 104 112 H (98-107) mmol/L Carbon Dioxide 26 26.2 (22-30) mmol/L BUN 12 10.0 (7-17) mg/dL Creatinine 0.71 0.6 (0.52-1.04) mg/dL Glucose 118 H 93 (74-99) mg/dL Calcium 9.7 7.7 L (8.4-10.2) mg/dL Total Bilirubin 0.7 (0.2-1.3) mg/dL AST 24 (14-36) U/L ALT 14 (4-34) U/L Alkaline Phosphatase 51 (38-126) U/L Total Protein 6.9 (6.3-8.2) g/dL Albumin 4.3 (3.5-5.0) g/dL
== END 2021-06-30 15:17 | disposition left against medical advice (07) ==
LOC: EC 19:26 → 6NMEDSUR 23:32 → 5NMEDONC 06-30 06:21
PROVIDERS: ADMIT Internal Medicine; ATTEND Internal Medicine
DX: S30.1XXA Contusion of abdominal wall, initial encounter (principal); S30.0XXA Contusion of lower back and pelvis, initial encounter; W10.9XXA Fall (on) (from) unspecified stairs and steps, initial encounter; Y92.009 Unspecified place in unspecified non-institutional (private) residence as the place of occurrence of the external cause; Z53.29 Procedure and treatment not carried out because of patient's decision for other reasons; I25.10 Atherosclerotic heart disease of native coronary artery without angina pectoris; I25.2 Old myocardial infarction; I10 Essential (primary) hypertension; J44.9 Chronic obstructive pulmonary disease, unspecified; D62 Acute posthemorrhagic anemia; F17.200 Nicotine dependence, unspecified, uncomplicated; N13.30 Unspecified hydronephrosis; K21.9 Gastro-esophageal reflux disease without esophagitis; F32.9 Major depressive disorder, single episode, unspecified; M51.9 Unspecified thoracic, thoracolumbar and lumbosacral intervertebral disc disorder; M54.9 Dorsalgia, unspecified; F42.4 Excoriation (skin-picking) disorder; Z79.51 Long term (current) use of inhaled steroids; Z79.82 Long term (current) use of aspirin; Z91.048 Other nonmedicinal substance allergy status; Z79.899 Other long term (current) drug therapy; Z88.0 Allergy status to penicillin; Z88.7 Allergy status to serum and vaccine; Z88.1 Allergy status to other antibiotic agents; Z90.2 Acquired absence of lung [part of]; Z98.41 Cataract extraction status, right eye; Z98.42 Cataract extraction status, left eye; Z86.59 Personal history of other mental and behavioral disorders; Z83.2 Family history of diseases of the blood and blood-forming organs and certain disorders involving the immune mechanism; Z80.9 Family history of malignant neoplasm, unspecified
CPT/HCPCS: 96376 ×2; 96361 ×2; 96374; 96375; 99285; 36415; 94640; 82747; 80053; 80048; 82607; 83605; 83690; 85025; 85027; 81003; 74177; G0378; J1200; J2405; J1170 ×2; Q9967

== ENCOUNTER → 2023-09-28 | Outpatient (CLI) | payer OTHER ==
--- NOTE | 2023-10-01 08:09 | MM ---
Reason for Exam: Screening (asymptomatic). Baseline mammogram. Patient History: Menarche at age 12. First Full-Term at age 18. Postmenopausal. Risk Values: Yenny 5 year model risk: 1.0%. NCI Lifetime model risk: 6.3%. Prior Study Comparison: Patient's first Mammogram. Tissue Density: There are scattered fibroglandular densities. Findings: Analyzed By CAD. There is no suspicious group of microcalcifications or new suspicious mass. Overall Assessment: Negative, BI-RAD 1 Management: Screening Mammogram of both breasts in [address] [facility] will attempt to contact patient to return for supplemental views and ultrasound if indicated. Patient should continue monthly self-breast exams. A clinical breast exam by your physician is recommended on an annual basis. This exam should not preclude additional follow-up of suspicious palpable abnormalities. Note on Yenny scores and lifetime risk: 1. A Yenny score greater than 3% is considered moderate risk. If this is the case, consider specialist referral to assess eligibility for a risk reducing agent. 2. If overall lifetime risk for the development of breast cancer is 20% or higher, the patient may qualify for future screening with alternating mammogram and breast MRI. Electronically signed and approved by: Nolberto Bonilla DO
== END | disposition home or self-care (01) ==
LOC: RADMAMWWP 16:13
PROVIDERS: ATTEND Family Medicine
DX: Z12.31 Encounter for screening mammogram for malignant neoplasm of breast (principal); Z78.0 Asymptomatic menopausal state
CPT/HCPCS: 77063; 77067

== ENCOUNTER 2024-12-09 08:48 | Emergency (ER) | payer OTHER ==
--- NOTE | 2024-12-09 09:18 | ED ---
General Adult HPI - General Chief complaint: Dizziness Stated complaint: Dizziness,R ear issue Time Seen by Provider: 12/09/24 08:51 Source: patient Mode of arrival: ambulatory Limitations: no limitations - History of Present Illness Initial comments: Dictation was produced using [employer] dictation software. please excuse any grammatical, word or spelling errors. Chief Complaint: 59-year-old female with facial congestion, ear pain and dizziness History of Present Illness: Patient is 51-year-old female states that she has been feeling symptomatic for the last 4 days. Patient complains of sinus congestion. Patient [place] any fever, chills or night sweats. Patient states she feels a little lightheaded. The ROS documented in this emergency department record has been reviewed and confirmed by me. Those systems with pertinent positive or negative responses have been documented in the HPI. All other systems are other negative and/or noncontributory. - Related Data Home Medications Medication Instructions Recorded Confirmed HYDROcodone/APAP 10-325MG [[place] 1 tab PO BID PRN 09/11/16 06/29/21 10-325] Meclizine [Antivert] 12.5 mg PO TID PRN 09/11/16 06/29/21 Albuterol Nebulized [Ventolin 2.5 mg INHALATION RT-TID PRN 10/09/20 06/29/21 Nebulized] Atorvastatin Calcium [Lipitor] 20 mg PO DAILY 10/09/20 06/29/21 Famotidine 40 mg PO DAILY 10/09/20 06/29/21 atenoloL [Tenormin] 50 mg PO DAILY 10/09/20 06/29/21 Cholecalciferol [Vitamin D3 (25 50 mcg PO DAILY 06/08/21 06/29/21 Mcg = 1000 Iu)] Venlafaxine HCl ER [Effexor Xr] 150 mg PO DAILY 06/08/21 06/29/21 lisinopriL [Zestril] 5 mg PO DAILY 06/08/21 06/29/21 Budesonide/Formoterol Fumarate 2 puff INHALATION RT-BID 06/29/21 06/29/21 [Symbicort 160-4.5 Mcg Inhaler] Cyclobenzaprine [Flexeril] 10 mg PO BID 06/29/21 06/29/21 Nicotine 21Mg/24Hr Patch [Habitrol] 1 patch TRANSDERM DAILY PRN 06/29/21 QUEtiapine [SEROquel] 25 mg PO BID 06/29/21 06/29/21 methylPREDNISolone Dose Pack See Taper PO DIRECTED 06/29/21 06/29/21 [Medrol Dose Pack] Previous Rx's Medication Instructions Recorded Aspirin 81 mg PO DAILY #30 chew 10/11/20 Allergies Allergy/AdvReac Type Severity Reaction Status Date / Time iron Allergy Unknown Unknown Verified 12/09/24 08:51 Childhood erythromycin base Allergy BREATHING Verified 12/09/24 08:51 DIFFICULTY. Penicillins Allergy Unknown Verified 12/09/24 08:51 Childhood pneumococcal vaccine Allergy Unknown Verified 12/09/24 08:51 [From Prevnar 13 (PF)] Review of Systems ROS Statement: Those systems with pertinent positive or pertinent negative responses have been documented in the HPI. ROS Other: All systems not noted in ROS Statement are negative. 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, HERNIATED DISC WITH BACK PAIN, STATES SHE PICKS AT HER SKIN., BILAT CATARACTS-removed Last Myocardial Infarction Date:: 1996 History of Any Multi-Drug Resistant Organisms: None Reported Additional Past Surgical History / Comment(s): PARTIAL left lung removed, colonoscopy, cataracts Past Anesthesia/Blood Transfusion Reactions: Motion Sickness Past Psychological History: Depression Smoking Status: Current every day smoker Past Alcohol Use History: Daily Past Drug Use History: Marijuana - Past Family History Mother Family Medical History: Cancer, Deep Vein Thrombosis (DVT) General Exam - General Exam Comments Initial Comments: PHYSICAL EXAM: General Impression: Alert and oriented x3, not in acute distress HEENT: Normocephalic atraumatic, extra-ocular movements intact, pupils equal and reactive to light bilaterally, mucous membranes moist, inflammatory changes to the right external auditory canal Cardiovascular: Heart regular rate and rhythm Chest: Able to complete full sentences, no retractions, no tachypnea Abdomen: abdomen soft, non-tender, non-distended, no organomegaly Musculoskeletal: Pulses present and equal in all extremities, no peripheral edema Motor: no focal deficits noted Neurological: CN II-XII grossly intact, no focal motor or sensory deficits noted Skin: Intact with no visualized rashes Psych: Normal affect and mood Limitations: no limitations Course Vital Signs 12/09/24 12/09/24 12/09/24 08:51 09:33 10:09 Temperature 97.5 F L 97.9 F Pulse Rate 67 144 H 98 Respiratory 20 18 18 Rate Blood Pressure 137/102 144/102 156/117 O2 Sat by Pulse 98 97 61 L Oximetry EKG Findings - EKG Comments: EKG Findings:: My EKG interpretation: Ventricular rate 60, sinus rhythm,. 158, QRS 80, QTc 465. No OR prolongation, no QTC prolongation, no ST or T-wave changes noted. Overall, this EKG is unremarkable Medical Decision Making - Medical Decision Making Was pt. sent in by a medical professional or institution ([facility] Cruz, [employer], urgent care, hospital, or long-term...) When possible be specific @ -No Did you speak to anyone other than the patient for history (EMS, parent, family, police, friend...)? What history was obtained from this source @ -No Did you review nursing and triage notes (agree or disagree)? Why? @ -I reviewed and agree with nursing and triage notes Were old charts reviewed (outside hosp., previous admission, EMS record, old EKG, old radiological studies, urgent care reports/EKG's, long-term records)? Report findings @ -No old charts were reviewed Differential Diagnosis (chest pain, altered mental status, abdominal pain women, abdominal pain men, vaginal bleeding, musculoskeletal, weakness, fever, dyspnea, syncope, headache, dizziness, GI bleed, back pain, seizure, CVA, palpatations, mental health)? @ -Differential Dizziness: Benign paroxysmal positional Vertigo, Meniere's disease, otitis media, acoustic neuroma, vertebrobasilar insufficiency, cerebellar stroke, encephalitis, hypovolemic, arrhythmia, coronary artery syndrome, anemia, this is not meant to be an all-inclusive list EKG interpreted by me (3pts min.). @ -See above X-rays interpreted by me (1pt min.). @ -None done CT interpreted by me (1pt min.). @ -None done U/S interpreted by me (1pt. min.). @ -None done What testing was considered but not performed or refused? (CT, X-rays, U/S, labs)? Why? @ -None What meds were considered but not given or refused? Why? @ -None Was smoking cessation discussed for >3mins.? @ -No Were there social determinants of health that impacted care today? How? (Homelessness, low income, unemployed, alcoholism, drug addiction, transportation, low edu. Level, literacy, decrease access to med. care, long term, rehab)? @ -No Was there de-escalation of care discussed even if they declined (Discuss DNR or withdrawal of care, Hospice)? DNR status @ -No What co-morbidities impacted this encounter? (DM, HTN, Smoking, COPD, CAD, Cancer, CVA, ARF, Chemo, Hep., AIDS, mental health diagnosis, sleep apnea, morbid obesity)? @ -None Was patient admitted / discharged? Hospital course, mention meds given and route, prescriptions, significant lab abnormalities, going to OR and other pertinent info. @ -51-year-old female presents emergency department chief complaint of dizziness. Patient has been having some sinus congestion for less than 10 days. Thought that perhaps maybe this is secondary to her not having her antidep ressant medications. Vital signs stable. Physical examination is unremarkable. Laboratory evaluation obtained. CBC, metabolic panel is unremarkable. Viral swabs shows COVID-19 positivity. Patient reevaluated bedside at 10:41 AM found to be stable to condition. Not hypoxic showing any signs of respiratory distress. Patient well-appearing can be discharged. Advise follow-up with primary care doctor Did you discuss the management of the patient with other professionals (professionals i.e. , PA, [employer]ER, lab, RT, psych nurse, social service director, solar system designer, teacher, parking regulation enforcement officer, insurance case manager)? Give summary @ -No Was critical care preformed (if so, how long)? @ -No Undiagnosed new problem with uncertain prognosis? @ -No Drug Therapy requiring intensive monitoring for toxicity (Heparin, Nitro, Insulin, Cardizem)? @ -No Were any procedures done? @ -No Diagnosis/symptom? Acute, or Chronic, or Acute on Chronic? Uncomplicated (without systemic symptoms) or Complicated (systemic symptoms)? @ -Coronavirus Side effects of treatment? @ -No Exacerbation, Progression, or Severe Exacerbation? @ -No Poses a threat to life or bodily function? How? (Chest pain, [place], [place], pneumonia, PE, COPD, DKA, ARF, appy, cholecystitis, CVA, Diverticulitis, Homicidal, Suicidal, threat to staff... and all critical care pts) @ -No - Lab Data Result diagrams: 12/09/24 09:23 12/09/24 09:23 Lab Results 12/09/24 12/09/24 12/09/24 Range/Units 09:23 09:23 09:23 WBC 5.2 (3.8-10.6) k/uL RBC 4.40 (3.80-5.40) m/uL Hgb 14.6 (11.4-16.0) gm/dL Hct 44.7 (34.0-46.0) % MCV 101.5 H (80.0-100.0) fL MCH 33.2 (25.0-35.0) pg MCHC 32.7 (31.0-37.0) g/dL RDW 12.4 (11.5-15.5) % Plt Count 201 (150-450) k/uL MPV 7.9 Neutrophils % 53 % Lymphocytes % 33 % Monocytes % 8 % Eosinophils % 4 % Basophils % 1 % Neutrophils # 2.7 (1.3-7.7) k/uL Lymphocytes # 1.7 (1.0-4.8) k/uL Monocytes # 0.4 (0-1.0) k/uL Eosinophils # 0.2 (0-0.7) k/uL Basophils # 0.0 (0-0.2) k/uL Sodium 140 (137-145) mmol/L Potassium 4.1 (3.5-5.1) mmol/L Chloride 105 (98-107) mmol/L Carbon Dioxide 28 (22-30) mmol/L Anion Gap 7 mmol/L BUN 11 (7-17) mg/dL Creatinine 0.74 (0.52-1.04) mg/dL Est GFR (CKD-EPI)AfAm >90 (>60 ml/min/1.73 sqM) Est GFR (CKD-EPI)NonAf >90 (>60 ml/min/1.73 sqM) Glucose 99 (74-99) mg/dL Calcium 9.5 (8.4-10.2) mg/dL Influenza Type A (PCR) Not Detected (Not Detectd) Influenza Type B (PCR) Not Detected (Not Detectd) RSV (PCR) Not Detected (Not Detectd) SARS-CoV-2 (PCR) Detected A (Not Detectd) Disposition Clinical Impression: Coronavirus infection Disposition: HOME SELF-CARE Condition: Good Instructions (If sedation given, give patient instructions): Coronavirus Disease 2019 (COVID-19) Is patient prescribed a controlled substance at d/c from ED?: No Referrals: Gaurav Garcia MD [Primary Care Provider] - 1-2 days Time of Disposition: 10:42
[2024-12-09] MEDS: SODIUM CHLORIDE 0.9% 1,000 ML IV STA (09:29)
[2024-12-09] MEDS: KETOROLAC 15 MG/ML 1 ML VIAL IVP STA (09:31)
[2024-12-09 09:35] VITALS: RESP 18; TEMP 97.9
[2024-12-09 09:36] LABS: Basophils % (A) 1 %; Eosinophils # (A) 0.2 k/uL (0-0.7); Eosinophils % (A) 4 %; HCT 44.7 % (34.0-46.0); HGB 14.6 gm/dL (11.4-16.0); Lymphocytes # (A) 1.7 k/uL (1.0-4.8); Lymphocytes % (A) 33 %; MCH 33.2 pg (25.0-35.0); MCHC 32.7 g/dL (31.0-37.0); MCV 101.5 fL (80.0-100.0); Mean Platelet Volume 7.9; Monocytes # (A) 0.4 k/uL (0-1.0); Monocytes % (A) 8 %; Neutrophils # (A) 2.7 k/uL (1.3-7.7); Neutrophils % (A) 53 %; Platelet Count 201 k/uL (150-450); RDW 12.4 % (11.5-15.5); WBC 5.2 k/uL (3.8-10.6)
[2024-12-09 09:51] LABS: African American GFR (CKD) >90 (>60 ml/min/1.73 sqM); Anion Gap 7 mmol/L; Blood Urea Nitrogen 11 mg/dL (7-17); Calcium 9.5 mg/dL (8.4-10.2); Carbon Dioxide 28 mmol/L (22-30); Chloride 105 mmol/L (98-107); Glucose 99 mg/dL (74-99); Non-African American GFR(CKD) >90 (>60 ml/min/1.73 sqM); Potassium 4.1 mmol/L (3.5-5.1); Sodium 140 mmol/L (137-145)
[2024-12-09 10:57] VITALS: BP 162/97; PULSE 59
== END 2024-12-09 11:02 | disposition home or self-care (01) ==
LOC: EC 08:48
DX: U07.1 COVID-19 (principal); F17.200 Nicotine dependence, unspecified, uncomplicated; Z88.0 Allergy status to penicillin; Z88.1 Allergy status to other antibiotic agents; Z88.7 Allergy status to serum and vaccine; Z88.8 Allergy status to other drugs, medicaments and biological substances
CPT/HCPCS: 36415; 93005; 80048; 85025; 87636; 99284; 96374; 96361; J1885